=== PATIENT | female | born 1960 | race Caucasian/White ===

== ENCOUNTER 2021-02-11 12:10 | Inpatient (IN) ==
--- NOTE | 2021-02-11 13:09 | Emergency Department Note ---
Weakness HPI <Milly Garcia PA-C - Last Filed: 02/11/21 21:12> General Chief complaint: Weakness Stated complaint: weakness Time Seen by Provider: 02/11/21 12:30 Source: EMS Mode of arrival: EMS Limitations: language barrier History of Present Illness HPI Narrative: This is a 60-year-old female patient with ESRD with a tunneled right dialysis catheter placed last week who lives at [facility], [place] and presented for the second time in the last week for altered mental status. She was transferred from here to [facility] for dialysis and a neurology consult when a CT of her head showed enlarged ventricles with concern for normal pressure hydrocephaly. She was worked up by neurosurgery, Dr. Crandall and he felt that there was evidence of enlarged ventricles with some neurological features of normal pressure hydrocephaly, but felt more testing was indicated with a radionucleotide cisternogram as an outpatient evaluation, and he did not recommend shunting at that time. She was discharged last Thursday, and after I spoke with her son Riley today, he states that she was mentating normally and that her sodium had corrected at that time. According to nursing at her SNF today she is acutely more confused this morning and was somewhat combative. She refused dialysis. For that reason they sent her over here for evaluation. In addition, she has multiple bruises along the right side of her body. In discussion with her son, he states that she has been falling frequently. She does take clopidogrel. Son is her DPOA and would like her admitted to normalize her mentation so that they can have a conversation about goals of care and possible hospice as the patient has vocalized many times she does not want to do dialysis. At this time I do not think she has executive function to make that decision for herself. Related Data Home Medications Medication Instructions Recorded Confirmed divalproex 250 mg tablet,delayed 1,000 mg PO HS tab 04/18/15 02/12/21 release B complex-vitamin C-folic acid 1 tab PO QDAY 02/11/21 02/11/21 [Nephro-Saritha] acetaminophen 650 mg PO Q6HP PRN 02/11/21 02/12/21 amantadine HCl 100 mg PO BID 02/11/21 02/11/21 amlodipine 10 mg PO QDAY 02/11/21 02/11/21 aspirin 81 mg PO QDAY 02/11/21 02/11/21 atorvastatin 40 mg PO QHS 02/11/21 02/12/21 bisacodyl [Dulcolax (bisacodyl)] 10 mg UT ONCE PRN 02/11/21 02/11/21 bupropion HCl 150 mg PO BID 02/11/21 02/12/21 carvedilol 6.25 mg PO BID 02/11/21 02/12/21 clopidogrel 75 mg PO QDAY 02/11/21 02/11/21 docusate sodium 250 mg PO BID 02/11/21 02/11/21 hydralazine 25 mg PO BID 02/11/21 02/11/21 lactulose 30 ml PO BID PRN 02/11/21 02/12/21 megestrol 400 mg PO BID 02/11/21 02/11/21 olanzapine 10 mg PO QHS 02/11/21 02/12/21 oxybutynin chloride [Ditropan XL] 5 mg PO QDAY 02/11/21 02/11/21 polyethylene glycol 3350 17 g PO QDAY 02/11/21 02/11/21 sevelamer HCl 800 mg PO TID 02/11/21 02/11/21 sodium phosphates [Fleet Enema] 118 ml UT ONCE PRN 02/11/21 02/12/21 trazodone 50 mg PO QHS 02/11/21 02/11/21 valproic acid 250 mg PO BID 02/11/21 02/12/21 lidocaine-prilocaine 2.5 g TOPICAL Q48H 02/12/21 02/12/21 Allergies Allergy/AdvReac Type Severity Reaction Status Date / Time fluoxetine Allergy Unknown Verified 02/05/21 09:11 Fate Allergy Verified 02/05/21 09:11 meperidine Allergy Verified 02/05/21 09:11 codeine AdvReac Mild Agitated Verified 04/14/15 20:10 Review of Systems <Milly Garcia PA-C - Last Filed: 02/11/21 21:12> ROS ROS Narrative: Narrative: All systems ED: reviewed and negative except as stated. <Yan Arreguin MD - Last Filed: 02/13/21 08:49> ROS ROS Narrative: ROS is suspect as patient exhibiting some confusion. PFSH <Milly Garcia PA-C - Last Filed: 02/11/21 21:12> Narrative Patient History Narrative: Narrative: Medical/Surgical/Family History All Active Problems (Updated 02/13/21 @ 08:07 by Gurwinder Mccann MD) Acute hypernatremia (Acute) Acute hyperkalemia (Acute) Encephalopathy (Acute) End stage renal failure on dialysis (Acute) Hypernatremia (Acute) Altered mental status (Acute) Vitamin D deficiency (Acute) Hyperlipemia (Acute) Bipolar affect, depressed (Acute) Kidney disease, chronic, stage IV (severe, EGFR 15-29 ml/min) (Acute) Cough (Chronic) Musculoskeletal pain (Chronic) Dementia (Chronic) Urinary retention (Chronic) Abscess (Acute) MRSA (methicillin resistant Staphylococcus aureus) infection (Acute) Medical History Abscess Bipolar affect, depressed Cough Dementia Hyperlipemia Kidney disease, chronic, stage IV (severe, EGFR 15-29 ml/min) MRSA (methicillin resistant Staphylococcus aureus) infection Musculoskeletal pain Urinary retention Vitamin D deficiency Social History Smoking Status: Never smoker Alcohol Intake Frequency: does not drink Substance Use: does not use Exam <Milly Garcia PA-C - Last Filed: 02/11/21 21:12> Narrative Narrative: General: AOx3, NAD, confused, tremulous, ataxic. Not oriented to place. HEENT: PERRLA, EOMI, normocephalic. Dry mucous membranes. Normal facies and edentulous. Chest: Symmetric Respiratory: Lungs clear to auscultation bilaterally. No respiratory distress. Unlabored breathing. Heart: Regular rate and rhythm, no murmurs/clicks/rubs. Abdomen: Non-tender, Non distended, normal bowel tones. No organomegaly. Extremities: Warm and well perfused. No edema. DP 2+ bilaterally. No venous stasis. Neuro: Ataxia. Cranial nerves II-XII normal. Skin: Warm dry, no rashes or lesions, no cyanosis. Psych: Normal mood and affect Heme/Lymph: He has bruises along her right chest wall and all down her right leg. Nontender to palpation. General Limitations: language barrier <Yan Arreguin MD - Last Filed: 02/13/21 08:49> Narrative Narrative: Correction: Pt. was NOT AOx3, but did respond to her name and seemed aware she was in a medical setting. Course <Milly Garcia PA-C - Last Filed: 02/11/21 21:12> Course Course Narrative: 61-year-old female with dialysis dependent ESRD is seen for altered mental status Reevaluation(s) Reevaluation #1: Check basic labs, UA, obtain blood cultures in the setting of recent dialysis port placement, chest x-ray, repeat head CT to rule out worsening hydrocephaly. Obtain records from [facility]. Blood cultures x2 pending in the setting of recent tunnel catheter placement. Reevaluation #2: Patient's sodium is 153. Valproic acid is 35, and her ammonia is not elevated. Chest x-ray is normal, head CT is unchanged from 02/05. Case is discussed with the neurosurgeon her saw her at [facility] last week, Dr. Yee, and he feels that she should be dialyzed first and correct any metabolic disturbances to see if her mentation improves. Patient needs shaneka lysis, but normal pressure hydrocephalus cannot be completely excluded at this time. For this reason she will need transfer to higher level of care where neurosurgery services are available. There are no beds regionally and we are waiting a callback from [facility]. Vital Signs Vital signs: Vital Signs Pulse Rate 82 02/11/21 12:11 Respiratory Rate 18 02/11/21 12:11 Blood Pressure 108/94 02/11/21 12:11 Pulse Oximetry (%) 100 02/11/21 12:11 Temperature 98.6 F 02/13/21 08:01 Pulse Rate 59 L 02/13/21 04:01 Respiratory Rate 17 02/13/21 08:04 Blood Pressure 99/76 02/13/21 08:01 Pulse Oximetry (%) 96 02/13/21 08:01 <Yan Arreguin MD - Last Filed: 02/13/21 08:49> Vital Signs Vital signs: Vital Signs Pulse Rate 82 02/11/21 12:11 Respiratory Rate 18 02/11/21 12:11 Blood Pressure 108/94 02/11/21 12:11 Pulse Oximetry (%) 100 02/11/21 12:11 Temperature 98.6 F 02/13/21 08:01 Pulse Rate 59 L 02/13/21 04:01 Respiratory Rate 17 02/13/21 08:04 Blood Pressure 99/76 02/13/21 08:01 Pulse Oximetry (%) 96 02/13/21 08:01 [facility] <Milly Garcia PA-C - Last Filed: 02/11/21 21:12> MDM Narrative Medical decision making narrative: Acute encephalopathy Dialysis dependent ESRD Possible normal pressure hydrocephalus Hypernatremia Currently awaiting a bed for transfer. Cultures x2 are pending this patient has been signed out to Dr. Landis at change of shift. Please see his notes for further details. Lab Data Result diagrams: 02/12/21 07:00 02/13/21 04:05 Labs: Lab Results 02/11/21 02/11/21 02/11/21 Range/Units 12:54 13:51 13:51 WBC 7.4 (4.5-11.0) K/mcL RBC 3.49 L (4.00-5.20) M/mcL Hgb 11.9 L (12.0-15.0) g/dL Hct 36.3 (36.0-48.0) % MCV 104.0 H (80.0-100.0) fL MCH 34.1 H (26.0-34.0) pg MCHC 32.8 (31.0-36.0) g/dL RDW 14.4 (11.5-14.5) % Plt Count 195 (140-440) K/mcL MPV 12.4 H (7.4-10.4) fL Seg Neutrophils % 74 (38-78) % Lymphocytes % 23 (15-49) % Monocytes % (Manual) 3 (1-12) % Platelet Estimate Normal (Normal) RBC Morphology Abnormal A (Normal) Macrocytosis 1+ A (None Seen) VBG Lactic Acid (0.5-2.0) mmol/L Sodium 153 H (133-145) mmol/L Potassium 4.6 (3.3-5.1) mmol/L Chloride 116 H (96-108) mmol/L Carbon Dioxide 23 (22-30) mmol/L Anion Gap 14.0 (8.0-16.0) BUN 69 H (8-23) mg/dL Creatinine 6.4 H* (0.6-1.1) mg/dL GFR Calculation 6 Glucose 73 (70-105) mg/dL Calcium 10.4 (8.6-10.4) mg/dL Total Bilirubin 0.5 (0.1-1.0) mg/dL AST 33 H (<32) U/L ALT 40 H (<40) U/L Alkaline Phosphatase 113 (39-117) U/L Ammonia 32 (11-51) umol/L Total Protein 5.8 L (5.9-8.4) gm/dL Albumin 3.6 (3.2-5.2) gm/dL Globulin 2.2 (2.2-3.7) gm/dL Albumin/Globulin Ratio 1.6 (1.0-2.3) Valproic Acid ug/mL 02/11/21 02/11/21 Range/Units 14:03 18:30 WBC (4.5-11.0) K/mcL RBC (4.00-5.20) M/mcL Hgb (12.0-15.0) g/dL Hct (36.0-48.0) % MCV (80.0-100.0) fL MCH (26.0-34.0) pg MCHC (31.0-36.0) g/dL RDW (11.5-14.5) % Plt Count (140-440) K/mcL MPV (7.4-10.4) fL Seg Neutrophils % (38-78) % Lymphocytes % (15-49) % Monocytes % (Manual) (1-12) % Platelet Estimate (Normal) RBC Morphology (Normal) Macrocytosis (None Seen) VBG Lactic Acid 1.4 (0.5-2.0) mmol/L Sodium (133-145) mmol/L Potassium (3.3-5.1) mmol/L Chloride (96-108) mmol/L Carbon Dioxide (22-30) mmol/L Anion Gap (8.0-16.0) BUN (8-23) mg/dL Creatinine (0.6-1.1) mg/dL GFR Calculation Glucose (70-105) mg/dL Calcium (8.6-10.4) mg/dL Total Bilirubin (0.1-1.0) mg/dL AST (<32) U/L ALT (<40) U/L Alkaline Phosphatase (39-117) U/L Ammonia (11-51) umol/L Total Protein (5.9-8.4) gm/dL Albumin (3.2-5.2) gm/dL Globulin (2.2-3.7) gm/dL Albumin/Globulin Ratio (1.0-2.3) Valproic Acid 35.0 ug/mL ED POC Tests ED POC Tests: TRA - SARS Antigen Negative <Yan Arreguin MD - Last Filed: 02/13/21 08:49> Lab Data Labs: Lab Results 02/11/21 02/11/21 02/11/21 Range/Units 12:54 13:51 13:51 WBC 7.4 (4.5-11.0) K/mcL RBC 3.49 L (4.00-5.20) M/mcL Hgb 11.9 L (12.0-15.0) g/dL Hct 36.3 (36.0-48.0) % MCV 104.0 H (80.0-100.0) fL MCH 34.1 H (26.0-34.0) pg MCHC 32.8 (31.0-36.0) g/dL RDW 14.4 (11.5-14.5) % Plt Count 195 (140-440) K/mcL MPV 12.4 H (7.4-10.4) fL Seg Neutrophils % 74 (38-78) % Lymphocytes % 23 (15-49) % Monocytes % (Manual) 3 (1-12) % Platelet Estimate Normal (Normal) RBC Morphology Abnormal A (Normal) Macrocytosis 1+ A (None Seen) VBG Lactic Acid (0.5-2.0) mmol/L Sodium 153 H (133-145) mmol/L Potassium 4.6 (3.3-5.1) mmol/L Chloride 116 H (96-108) mmol/L Carbon Dioxide 23 (22-30) mmol/L Anion Gap 14.0 (8.0-16.0) BUN 69 H (8-23) mg/dL Creatinine 6.4 H* (0.6-1.1) mg/dL GFR Calculation 6 Glucose 73 (70-105) mg/dL Calcium 10.4 (8.6-10.4) mg/dL Total Bilirubin 0.5 (0.1-1.0) mg/dL AST 33 H (<32) U/L ALT 40 H (<40) U/L Alkaline Phosphatase 113 (39-117) U/L Ammonia 32 (11-51) umol/L Total Protein 5.8 L (5.9-8.4) gm/dL Albumin 3.6 (3.2-5.2) gm/dL Globulin 2.2 (2.2-3.7) gm/dL Albumin/Globulin Ratio 1.6 (1.0-2.3) Valproic Acid ug/mL 02/11/21 02/11/21 Range/Units 14:03 18:30 WBC (4.5-11.0) K/mcL RBC (4.00-5.20) M/mcL Hgb (12.0-15.0) g/dL Hct (36.0-48.0) % MCV (80.0-100.0) fL MCH (26.0-34.0) pg MCHC (31.0-36.0) g/dL RDW (11.5-14.5) % Plt Count (140-440) K/mcL MPV (7.4-10.4) fL Seg Neutrophils % (38-78) % Lymphocytes % (15-49) % Monocytes % (Manual) (1-12) % Platelet Estimate (Normal) RBC Morphology (Normal) Macrocytosis (None Seen) VBG Lactic Acid 1.4 (0.5-2.0) mmol/L Sodium (133-145) mmol/L Potassium (3.3-5.1) mmol/L Chloride (96-108) mmol/L Carbon Dioxide (22-30) mmol/L Anion Gap (8.0-16.0) BUN (8-23) mg/dL Creatinine (0.6-1.1) mg/dL GFR Calculation Glucose (70-105) mg/dL Calcium (8.6-10.4) mg/dL Total Bilirubin (0.1-1.0) mg/dL AST (<32) U/L ALT (<40) U/L Alkaline Phosphatase (39-117) U/L Ammonia (11-51) umol/L Total Protein (5.9-8.4) gm/dL Albumin (3.2-5.2) gm/dL Globulin (2.2-3.7) gm/dL Albumin/Globulin Ratio (1.0-2.3) Valproic Acid 35.0 ug/mL ED POC Tests ED POC Tests: TRA - SARS Antigen Negative <Yan Arreguin MD - Last Filed: 02/13/21 08:49> Critical Care Time Critical Care Time: Yes Total Critical Care Time: 30 Attestation: In this patient with hypernatremia and altered mental status. Time is exclusive of separate billable procedure. Discharge Plan Patient/Caregiver Discharge Instructions Pt seen by OVERLOCK OPERATOR/PA only: Yes Clinical Impression: End stage renal failure on dialysis, Hypernatremia, Altered mental status Patient Disposition: Xfer As Inpt ([facility]) Discharge Date/Time: 02/12/21 00:38
[2021-02-11 14:24] LABS: ALT/SGPT 40 U/L (<40); AST/SGOT 33 U/L (<32); Albumin 3.6 gm/dL (3.2-5.2); Albumin/Globulin Ratio 1.6 (1.0-2.3); Alkaline Phosphatase 113 U/L (39-117); Bilirubin,Total 0.5 mg/dL (0.1-1.0); Blood Urea Nitrogen 69 mg/dL (8-23); Calcium 10.4 mg/dL (8.6-10.4); Carbon Dioxide 23 mmol/L (22-30); Chloride 116 mmol/L (96-108); Globulin 2.2 gm/dL (2.2-3.7); Glomerular Filtration Rate 6; Glucose 73 mg/dL (70-105)
[2021-02-11 14:26] LABS: Hematocrit 36.3 % (36.0-48.0); Hemoglobin 11.9 g/dL (12.0-15.0); Mean Corpuscular HGB Conc 32.8 g/dL (31.0-36.0); Mean Platelet Volume 12.4 fL (7.4-10.4); Platelet Count 195 K/mcL (140-440); RBC 3.49 M/mcL (4.00-5.20); Red Cell Distribution Width 14.4 % (11.5-14.5); WBC 7.4 K/mcL (4.5-11.0)
--- NOTE | 2021-02-11 14:34 | XRay Report ---
CLINICAL INFORMATION: AMS, r/o infection COMPARISON: 02/05/2021 FINDINGS: Right double-lumen catheter tip overlies the SVC right atrial junction in stable satisfactory position. Heart size, mediastinum and pulmonary vessels are normal. The lungs are clear. No effusions. IMPRESSION: Normal Interpreted and Authenticated by: Warren Lao 02/11/21
[2021-02-11 14:59] LABS: Lymphocytes % 23 % (15-49); Macrocytosis 1+ (None Seen); Monocytes % (Manual) 3 % (1-12); Platelet Estimate NORMAL (Normal); RBC Morphology ABNORMAL (Normal); Segmented Neutrophils % 74 % (38-78)
--- NOTE | 2021-02-11 16:02 | Cat Scan Report ---
CLINICAL INFORMATION: Acute mental status change COMPARISON: 02/05/2021 TECHNIQUE: 2.5 mm helical slices were obtained in the skull base to vertex. Following reconstruction, axial reformatted images were reviewed at bone and parenchymal windows. The exam was performed using radiation dose optimization techniques including, but not limited to, automated exposure control, adjustment of the mA and/or kV according to patient size and use of iterative reconstruction technique. FINDINGS: The ventricles, sulci, fissures, and cisterns are moderately dilated compatible with moderate atrophy. The degree of atrophy is more prominent in the frontal temporal regions. No change from prior exam. No extra-axial fluid collections are identified. There is no evidence of hemorrhage, mass effect, or edema. Bone windows show no osseous abnormality. IMPRESSION: Moderate atrophy-much more than expected for age. Asymmetric atrophy in the frontal temporal regions suggest the possibility of frontotemporal atrophy. No acute findings. No change Interpreted and Authenticated by: Warren Lao 02/11/21
--- NOTE | 2021-02-11 22:36 | Emergency Department Note ---
Weakness HPI General Chief complaint: Weakness Stated complaint: weakness Time Seen by Provider: 02/11/21 12:30 Source: EMS Mode of arrival: EMS Limitations: language barrier History of Present Illness HPI Narrative: Please see KODY Molina H&P from earlier today. Care assumed pending disposition. 61-year-old female end-stage renal disease on dialysis schizoaffective disorder hypernatremia presents with increased confusion on dialysis day which was not done. Patient had similar presentation last week was admitted to [facility] with hypernatremia and concerns of hydrocephalus seen on CT scan. Patient was seen by neurosurgeon at [facility] and felt to have altered mental status likely from other causes including the renal failure and hypernatremia and recommended outpatient evaluation of the hydrocephalus. Patient had improvement in her hypernatremia was sent to her nursing facility and then today returns here under similar presentation with confusion. Patient was found to be hypernatremic still at 153. CT scan shows no change. KODY Molina attempted to find placement for the patient but [facility] as well as [facility] and [facility] all have no beds available. Related Data Home Medications Medication Instructions Recorded Confirmed divalproex 250 mg tablet,delayed 1,000 mg PO HS tab 04/18/15 02/11/21 release B complex-vitamin C-folic acid 1 tab PO QDAY 02/11/21 02/11/21 [Nephro-Saritha] acetaminophen 650 mg PO Q6HP PRN 02/11/21 02/11/21 amantadine HCl 100 mg PO BID 02/11/21 02/11/21 amlodipine 10 mg PO QDAY 02/11/21 02/11/21 aspirin 81 mg PO QDAY 02/11/21 02/11/21 atorvastatin 40 mg PO QDAY 02/11/21 02/11/21 bisacodyl [Dulcolax (bisacodyl)] 10 mg TN ONCE PRN 02/11/21 02/11/21 bupropion HCl 150 mg PO BID 02/11/21 02/11/21 carvedilol 6.25 mg PO BID 02/11/21 02/11/21 clopidogrel 75 mg PO QDAY 02/11/21 02/11/21 docusate sodium 250 mg PO BID 02/11/21 02/11/21 hydralazine 25 mg PO BID 02/11/21 02/11/21 lactulose 30 g PO BID PRN 02/11/21 02/11/21 megestrol 400 mg PO BID 02/11/21 02/11/21 olanzapine 10 mg PO QDAY 02/11/21 02/11/21 oxybutynin chloride [Ditropan XL] 5 mg PO QDAY 02/11/21 02/11/21 polyethylene glycol 3350 17 g PO QDAY 02/11/21 02/11/21 sevelamer HCl 800 mg PO TID 02/11/21 02/11/21 sodium phosphates [Fleet Enema] 118 ml TN ONCE PRN 02/11/21 02/11/21 trazodone 50 mg PO QHS 02/11/21 02/11/21 valproic acid 250 mg PO QDAY 02/11/21 02/11/21 Allergies Allergy/AdvReac Type Severity Reaction Status Date / Time fluoxetine Allergy Unknown Verified 02/05/21 09:11 [place] Allergy Verified 02/05/21 09:11 meperidine Allergy Verified 02/05/21 09:11 codeine AdvReac Mild Agitated Verified 04/14/15 20:10 Review of Systems ROS ROS Narrative: See earlier review of systems PFSH Narrative Patient History Narrative: Narrative: Medical/Surgical/Family History All Active Problems (Updated 02/11/21 @ 23:32 by Bradley Landis MD) Acute hypernatremia (Acute) Acute hyperkalemia (Acute) Encephalopathy (Acute) End stage renal failure on dialysis (Acute) Hypernatremia (Acute) Altered mental status (Acute) Vitamin D deficiency (Acute) Hyperlipemia (Acute) Bipolar affect, depressed (Acute) Kidney disease, chronic, stage IV (severe, EGFR 15-29 ml/min) (Acute) Cough (Chronic) Musculoskeletal pain (Chronic) Dementia (Chronic) Urinary retention (Chronic) Abscess (Acute) MRSA (methicillin resistant Staphylococcus aureus) infection (Acute) Medical History Abscess Bipolar affect, depressed Cough Dementia Hyperlipemia Kidney disease, chronic, stage IV (severe, EGFR 15-29 ml/min) MRSA (methicillin resistant Staphylococcus aureus) infection Musculoskeletal pain Urinary retention Vitamin D deficiency Social History Smoking Status: Never smoker Alcohol Intake Frequency: does not drink Substance Use: does not use Exam Narrative Narrative: Constitutional: Awake alert no acute distress well-nourished well- developed HEENT: Normocephalic, atraumatic PERRLA, EOMI, oral mucosa moist, pharynx clear, Neck: Supple, no lymphadenopathy, no JVD Lungs: Breathing unlabored, lungs clear Cardiac: Regular rate and rhythm, normal distal pulses, GI: Soft nontender nondistended no guarding no rebound Musculoskeletal: No tenderness, no deformities, no edema, full range of motion Neuro: Awake alert, confused, moves all extremities, resting tremor Psychiatric: Normal mood and affect Skin: Warm dry no rash, cap refill less than 2 seconds General Limitations: language barrier Course Consultations Consultation #1: Case discussed with neurosurgeon Dr Gonzales at [facility] in [place] who reviewed CT scan of head and did not feel that the patient definitively even has hydrocephalus and that actually that prominent ventricles may be from atrophy and did not require any immediate intervention or evaluation. He did recommend outpatient follow-up. Time: 22:34 Consultation #2: Case discussed with hospitalist Dr. Deras who agrees to admit patient here as long as heddler agrees to treat the hypernatremia and the renal failure with dialysis. And as long as the patient's family realizes there is no neurologist or neurosurgeon here and that can be followed up as an outpatient. Time: 23:10 Consultation #3: Case discussed with the patient's heddler Dr. Mccann who is agreeable to seeing the patient in consultation and evaluating and treating the hypernatremia and doing dialysis here. Time: 23:23 Vital Signs Vital signs: Vital Signs Pulse Rate 82 02/11/21 12:11 Respiratory Rate 18 02/11/21 12:11 Blood Pressure 108/94 02/11/21 12:11 Pulse Oximetry (%) 100 02/11/21 12:11 Temperature 97.2 F 02/11/21 23:35 Pulse Rate 84 02/11/21 23:45 Respiratory Rate 15 02/11/21 23:45 Blood Pressure 108/93 02/11/21 23:45 Pulse Oximetry (%) 98 02/11/21 23:45 [facility] Narrative Medical decision making narrative: Narrative: Lab Data Lab results reviewed: Yes I reviewed the patient's lab results. Result diagrams: 02/11/21 13:51 02/11/21 12:54 Labs: Lab Results 02/11/21 02/11/21 02/11/21 Range/Units 12:54 13:51 13:51 WBC 7.4 (4.5-11.0) K/mcL RBC 3.49 L (4.00-5.20) M/mcL Hgb 11.9 L (12.0-15.0) g/dL Hct 36.3 (36.0-48.0) % MCV 104.0 H (80.0-100.0) fL MCH 34.1 H (26.0-34.0) pg MCHC 32.8 (31.0-36.0) g/dL RDW 14.4 (11.5-14.5) % Plt Count 195 (140-440) K/mcL MPV 12.4 H (7.4-10.4) fL Seg Neutrophils % 74 (38-78) % Lymphocytes % 23 (15-49) % Monocytes % (Manual) 3 (1-12) % Platelet Estimate Normal (Normal) RBC Morphology Abnormal A (Normal) Macrocytosis 1+ A (None Seen) VBG Lactic Acid (0.5-2.0) mmol/L Sodium 153 H (133-145) mmol/L Potassium 4.6 (3.3-5.1) mmol/L Chloride 116 H (96-108) mmol/L Carbon Dioxide 23 (22-30) mmol/L Anion Gap 14.0 (8.0-16.0) BUN 69 H (8-23) mg/dL Creatinine 6.4 H* (0.6-1.1) mg/dL GFR Calculation 6 Glucose 73 (70-105) mg/dL Calcium 10.4 (8.6-10.4) mg/dL Total Bilirubin 0.5 (0.1-1.0) mg/dL AST 33 H (<32) U/L ALT 40 H (<40) U/L Alkaline Phosphatase 113 (39-117) U/L Ammonia 32 (11-51) umol/L Total Protein 5.8 L (5.9-8.4) gm/dL Albumin 3.6 (3.2-5.2) gm/dL Globulin 2.2 (2.2-3.7) gm/dL Albumin/Globulin Ratio 1.6 (1.0-2.3) Valproic Acid ug/mL 02/11/21 02/11/21 Range/Units 14:03 18:30 WBC (4.5-11.0) K/mcL RBC (4.00-5.20) M/mcL Hgb (12.0-15.0) g/dL Hct (36.0-48.0) % MCV (80.0-100.0) fL MCH (26.0-34.0) pg MCHC (31.0-36.0) g/dL RDW (11.5-14.5) % Plt Count (140-440) K/mcL MPV (7.4-10.4) fL Seg Neutrophils % (38-78) % Lymphocytes % (15-49) % Monocytes % (Manual) (1-12) % Platelet Estimate (Normal) RBC Morphology (Normal) Macrocytosis (None Seen) VBG Lactic Acid 1.4 (0.5-2.0) mmol/L Sodium (133-145) mmol/L Potassium (3.3-5.1) mmol/L Chloride (96-108) mmol/L Carbon Dioxide (22-30) mmol/L Anion Gap (8.0-16.0) BUN (8-23) mg/dL Creatinine (0.6-1.1) mg/dL GFR Calculation Glucose (70-105) mg/dL Calcium (8.6-10.4) mg/dL Total Bilirubin (0.1-1.0) mg/dL AST (<32) U/L ALT (<40) U/L Alkaline Phosphatase (39-117) U/L Ammonia (11-51) umol/L Total Protein (5.9-8.4) gm/dL Albumin (3.2-5.2) gm/dL Globulin (2.2-3.7) gm/dL Albumin/Globulin Ratio (1.0-2.3) Valproic Acid 35.0 ug/mL ED POC Tests ED POC Tests: TRA - SARS Antigen Negative Radiology Data Radiology results reviewed: Yes I reviewed the patient's radiology results. Discharge Plan Patient/Caregiver Discharge Instructions Pt seen by BULB GROWER/PA only: Yes Clinical Impression: End stage renal failure on dialysis, Hypernatremia, Altered mental status Patient Disposition: Xfer As Inpt ([facility] Follow up with: Cory Padilla MD [Primary Care Provider] - Prescriptions: No Action bupropion HCl 150 mg tablet sustained-release 12 hr 150 mg PO BID RF: 0 acetaminophen 325 mg tablet 650 mg PO Q6HP PRN (Reason: Pain) RF: 0 carvedilol 6.25 mg tablet 6.25 mg PO BID RF: 0 trazodone 50 mg Tablet 50 mg PO QHS RF: 0 polyethylene glycol 3350 17 gram Powder In Packet 17 g PO QDAY RF: 0 atorvastatin 10 mg tablet 40 mg PO QDAY RF: 0 sevelamer HCl 800 mg Tablet 800 mg PO TID RF: 0 olanzapine 10 mg Tablet 10 mg PO QDAY RF: 0 hydralazine 25 mg Tablet 25 mg PO BID RF: 0 clopidogrel 75 mg tablet 75 mg PO QDAY RF: 0 valproic acid 250 mg capsule 250 mg PO QDAY RF: 0 amantadine HCl 100 mg capsule 100 mg PO BID RF: 0 amlodipine 10 mg tablet 10 mg PO QDAY RF: 0 bisacodyl [Dulcolax (bisacodyl)] 10 mg Suppository 10 mg TN ONCE PRN (Reason: Constipation) RF: 0 Fleet Enema 19-7 gram/118 mL Enema 118 ml TN ONCE PRN (Reason: Constipation) RF: 0 oxybutynin chloride [Ditropan XL] 5 mg Tablet Extended Release 24hr 5 mg PO QDAY RF: 0 Nephro-Saritha 0.8 mg Tablet 1 tab PO QDAY RF: 0 aspirin 81 mg Tablet 81 mg PO QDAY RF: 0 docusate sodium 250 mg Capsule 250 mg PO BID RF: 0 lactulose 20 gram/30 mL Solution 30 g PO BID PRN (Reason: Constipation) RF: 0 megestrol 400 mg/10 mL (10 mL) Suspension 400 mg PO BID RF: 0 divalproex 250 mg tablet,delayed release (DR/EC) 1,000 mg PO HS RF: 0
[2021-02-12] MEDS: DEXTROSE 5% IN WATER 1,000 ML IV SCH ×2 (04:29→16:36)
[2021-02-12] MEDS ORDERED: LACTULOSE 20 GM/30 ML ORAL.SOL PO PRN (06:42)
[2021-02-12] MEDS ORDERED: BISACODYL 10 MG SUPP.RECT PR PRN (06:42)
[2021-02-12] MEDS ORDERED: FLEETS ADULT ENEMA PR PRN (06:42)
--- NOTE | 2021-02-12 06:42 | Internal Med History&Physical ---
HPI History of Present Illness Patient information: Note initiated : 02/12/21 at 6:35 am Service Date, if different from initiated Date: [] Patient: Eve Jones a 61 y/o F admitted on 02/12/21 for weakness. Chief Complaint: [] History of present illness: Ms. Jones is a 61 year old F From shelter facility presents for the second time for altered mental status. She was transferred to [facility] and seen by Dr. Lea who felt she likely had a component with normal pressure hydrocephalus and wanted to continue the work-up outpatient. She is also dialysis patient missed dialysis on Thursday because she refused at the nursing facility and per nursing facility she was confused and thus sent back to the hospital. At multiple attempts were made to transfer the patient to her neurology or specifically neurosurgeon was available given the cerebral abnormalities. No beds were available elsewhere and thus requested admission here. Acceptance was predicated on understanding that would likely will not build to resolve her altered mental status given what appears to be underlying normal pressure hydrocephalus as well as known dementia. But she does found to be hyperatremic and the need of dialysis. Dr. Mccann was contacted and she was put on D5 water and will likely get dialysis this morning. Per the notes the son was hoping that her mentation would improve enough that he can have a conversation with her about goals of care as she stated him multiple times as she did not want to undergo dialysis. Patient has no current complaint she says she is feeling okay. Review of Systems: Pertinent positives as above. Denies headache/fever/chills/nausea/vomiting/chest or abdominal pain/cough/dyspnea/diarrhea. Remaining 10 point review of system reviewed negative PFSH PFSH All Active Problems (Updated 02/11/21 @ 23:32 by Bradley Landis MD) Acute hypernatremia (Acute) Acute hyperkalemia (Acute) Encephalopathy (Acute) End stage renal failure on dialysis (Acute) Hypernatremia (Acute) Altered mental status (Acute) Vitamin D deficiency (Acute) Hyperlipemia (Acute) Bipolar affect, depressed (Acute) Kidney disease, chronic, stage IV (severe, EGFR 15-29 ml/min) (Acute) Cough (Chronic) Musculoskeletal pain (Chronic) Dementia (Chronic) Urinary retention (Chronic) Abscess (Acute) MRSA (methicillin resistant Staphylococcus aureus) infection (Acute) Medical History Abscess Bipolar affect, depressed Cough Dementia Hyperlipemia Kidney disease, chronic, stage IV (severe, EGFR 15-29 ml/min) MRSA (methicillin resistant Staphylococcus aureus) infection Musculoskeletal pain Urinary retention Vitamin D deficiency Social History alcohol intake frequency: does not drink substance use type: does not use MEDS/ALLERGIES Home Medications and Allergies Home Medications Medication Instructions Recorded Confirmed Type divalproex 250 mg tablet,delayed 1,000 mg PO HS tab 04/18/15 02/12/21 History release B complex-vitamin C-folic acid 1 tab PO QDAY 02/11/21 02/11/21 History [Nephro-Saritha] acetaminophen 650 mg PO Q6HP PRN 02/11/21 02/12/21 History amantadine HCl 100 mg PO BID 02/11/21 02/11/21 History amlodipine 10 mg PO QDAY 02/11/21 02/11/21 History aspirin 81 mg PO QDAY 02/11/21 02/11/21 History atorvastatin 40 mg PO QHS 02/11/21 02/12/21 History bisacodyl [Dulcolax (bisacodyl)] 10 mg [place] ONCE PRN 02/11/21 02/11/21 History bupropion HCl 150 mg PO BID 02/11/21 02/12/21 History carvedilol 6.25 mg PO BID 02/11/21 02/12/21 History clopidogrel 75 mg PO QDAY 02/11/21 02/11/21 History docusate sodium 250 mg PO BID 02/11/21 02/11/21 History hydralazine 25 mg PO BID 02/11/21 02/11/21 History lactulose 30 ml PO BID PRN 02/11/21 02/12/21 History megestrol 400 mg PO BID 02/11/21 02/11/21 History olanzapine 10 mg PO QHS 02/11/21 02/12/21 History oxybutynin chloride [Ditropan XL] 5 mg PO QDAY 02/11/21 02/11/21 History polyethylene glycol 3350 17 g PO QDAY 02/11/21 02/11/21 History sevelamer HCl 800 mg PO TID 02/11/21 02/11/21 History sodium phosphates [Fleet Enema] 118 ml MI ONCE PRN 02/11/21 02/12/21 History trazodone 50 mg PO QHS 02/11/21 02/11/21 History valproic acid 250 mg PO BID 02/11/21 02/12/21 History lidocaine-prilocaine 2.5 g TOPICAL Q48H 02/12/21 02/12/21 History Allergies Allergy/AdvReac Type Severity Reaction Status Date / Time fluoxetine Allergy Unknown Verified 02/05/21 09:11 [place] Allergy Verified 02/05/21 09:11 meperidine Allergy Verified 02/05/21 09:11 codeine AdvReac Mild Agitated Verified 04/14/15 20:10 EXAM Constitutional Vitals: Temp Pulse Resp BP Pulse Ox 97.9 F 82 16 125/89 100 02/12/21 04:02 02/12/21 06:03 02/12/21 06:03 02/12/21 06:03 02/12/21 06:03 Exam: General: Alert, Awake, No acute Distress Eyes/N/T: EOMI, PERRL, Head/Neck: neck supple, normocephalic atraumatic CV: RRR, No murmurs, normal s1/s2 Pulm: Clear b/l, no wheezing/rhonchi/rales Abd: soft, nontender, +BS x4 Ext: no clubbing/cyanosis/edema Neuro: Alert, no focal deficits, moves all extremities, CN 2-12 grossly intact, symmetrical strength b/l upper/lower, sensations intact b/l upper/lower. A&Ox2(place, name) Skin: warm/dry DATA Data Completed and Pending Labs: Labs from last 24 hours 02/11/21 02/11/21 02/11/21 18:30 14:03 13:51 WBC 7.4 RBC 3.49 L Hgb 11.9 L Hct 36.3 MCV 104.0 H MCH 34.1 H MCHC 32.8 RDW 14.4 Plt Count 195 MPV 12.4 H Seg Neutrophils % 74 Lymphocytes % 23 Monocytes % (Manual) 3 Platelet Estimate Normal RBC Morphology Abnormal A Macrocytosis 1+ A VBG Lactic Acid 1.4 Sodium Potassium Chloride Carbon Dioxide Anion Gap BUN Creatinine GFR Calculation Glucose Calcium Total Bilirubin AST ALT Alkaline Phosphatase Ammonia Total Protein Albumin Globulin Albumin/Globulin Ratio Valproic Acid 35.0 02/11/21 02/11/21 13:51 12:54 WBC RBC Hgb Hct MCV MCH MCHC RDW Plt Count MPV Seg Neutrophils % Lymphocytes % Monocytes % (Manual) Platelet Estimate RBC Morphology Macrocytosis VBG Lactic Acid Sodium 153 H Potassium 4.6 Chloride 116 H Carbon Dioxide 23 Anion Gap 14.0 BUN 69 H Creatinine 6.4 H* GFR Calculation 6 Glucose 73 Calcium 10.4 Total Bilirubin 0.5 AST 33 H ALT 40 H Alkaline Phosphatase 113 Ammonia 32 Total Protein 5.8 L Albumin 3.6 Globulin 2.2 Albumin/Globulin Ratio 1.6 Valproic Acid A/P Narrative A/P Narrative: A: *Encephalopathy: Multifactorial 2/2 NPH + underlying dementia + metabolic disturbance *Hypernatremia: *ESRD: Follows with Dr. Mccann *Dementia: *Likely NPH: being Worked up outpatient *Bipolar d/o: *HTN: norvasc/hydralazine/coreg * P: -hypernatremia/electrolyte disturbance per nephrology -HD per nephrology -cont BP meds -cont psych meds - -f/u with [facility] for NPH evaluation -CM for placement -ppx: heparin Time Spent With Patient Time: Total time spent is greater than 50% in coordination of care (as documented) at patient's floor/unit and/or counseling patient: QUALITY Stroke Symptom Onset Unknown: No VTE Deep Vein Thrombosis/Pulmonary Embolism Present on Admission: No
[2021-02-12] MEDS ORDERED: POTASSIUM CHLORIDE 20 MEQ TABLET PO PRN (06:43)
[2021-02-12] MEDS ORDERED: ONDANSETRON 4 MG/2 ML VIAL IV PRN (06:43)
[2021-02-12] MEDS ORDERED: POTASSIUM CHLORIDE 40 MEQ in DEXTROSE 5% IN WATER 500 ML IV PRN (06:43)
[2021-02-12] MEDS ORDERED: IPRATROPIUM/ALBUTEROL 3 ML AMPUL.NEB NEB PRN (06:43)
[2021-02-12] MEDS ORDERED: MAGNESIUM SULFATE 2 GM/50 ML BAG IV PRN (06:43)
[2021-02-12] MEDS ORDERED: LIDOCAINE/PRILOCAINE 5 GM TUBE TOPICAL PRN (06:45)
[2021-02-12] MEDS ORDERED: ACETAMINOPHEN 325 MG TABLET PO PRN (06:55)
[2021-02-12 07:46] LABS: Basophils # (Auto) 0 K/mcL (0.00-0.20); Basophils % (Auto) 0 % (0.0-2.0); Eosinophils # (Auto) 0 K/mcL (0.00-0.70); Eosinophils % (Auto) 0 % (0.0-7.0); Hemoglobin 11.3 g/dL (12.0-15.0); Lymphocytes # (Auto) 1.16 K/mcL (1.50-4.80); Lymphocytes % (Auto) 18.9 % (15.0-49.0); Mean Cell Volume 106.5 fL (80.0-100.0); Mean Corpuscular HGB Conc 31.4 g/dL (31.0-36.0); Mean Platelet Volume 12.4 fL (7.4-10.4); Monocytes # (Auto) 0.48 K/mcL (0.10-0.90); Monocytes % (Auto) 7.8 % (1.0-12.0); Neutrophils % (Auto) 73.3 % (38.0-78.0); Platelet Count 162 K/mcL (140-440); RBC 3.38 M/mcL (4.00-5.20); Red Cell Distribution Width 14.6 % (11.5-14.5); WBC 6.1 K/mcL (4.5-11.0)
[2021-02-12] MEDS ORDERED: SEVELAMER 800 MG TABLET PO SCH (08:00)
[2021-02-12 08:32] LABS: ALT/SGPT 35 U/L (<40); AST/SGOT 29 U/L (<32); Albumin 3.5 gm/dL (3.2-5.2); Albumin/Globulin Ratio 1.8 (1.0-2.3); Alkaline Phosphatase 106 U/L (39-117); Bilirubin,Direct 0.2 mg/dL (<0.3); Bilirubin,Total 0.5 mg/dL (0.1-1.0); Blood Urea Nitrogen 83 mg/dL (8-23); Carbon Dioxide 18 mmol/L (22-30); Chloride 115 mmol/L (96-108); Glomerular Filtration Rate 5; Glucose 132 mg/dL (70-105); Lactate Dehydrogenase 356 U/L (135-225); Phosphorous 6.7 mg/dL (2.5-4.5); Triglycerides 103 mg/dL (<150); Uric Acid 10.2 mg/dL (2.5-8.0)
[2021-02-12] MEDS: OXYBUTYNIN CHLORIDE 5 MG TAB.XL.24H PO SCH (08:35)
[2021-02-12] MEDS: AMANTADINE HCL 100 MG CAPSULE PO SCH ×2 (08:35→20:38)
[2021-02-12] MEDS: buPROPion 150 MG TAB.SR.12H PO SCH ×2 (08:35→20:39)
[2021-02-12] MEDS: POLYETHYLENE GLYCOL 3350 17 GM PACKET PO SCH (08:35)
[2021-02-12] MEDS: HEPARIN 5,000 UNIT/ML VIAL SQ SCH ×2 (08:35→20:37)
[2021-02-12] MEDS: ASPIRIN 81 MG TAB.CHEW PO SCH (08:35)
[2021-02-12] MEDS: CARVEDILOL 6.25 MG TABLET PO SCH ×2 (08:35→17:38)
[2021-02-12] MEDS: MEGESTROL ACETATE 400 MG/10 ML ORAL.SUSP PO SCH ×2 (08:38→20:37)
[2021-02-12] MEDS ORDERED: amLODIPine 10 MG TABLET PO SCH (09:00)
[2021-02-12] MEDS ORDERED: hydrALAZINE 25 MG TABLET PO SCH (09:00)
[2021-02-12] MEDS ORDERED: CLOPIDOGREL 75 MG TABLET PO SCH (09:00)
--- NOTE | 2021-02-12 09:03 | Consultation ---
DATE OF CONSULTATION: 02/12/2021 REASON FOR CONSULTATION: Hyponatremia and end-stage renal disease. HISTORY OF PRESENT ILLNESS: The patient is a 61-year-old female with a history of end-stage renal disease on hemodialysis. Recently, she was hospitalized at [facility]. She had extensive workup. Over the last 6 months, she has deteriorated significantly. It was thought that she probably has normal pressure hydrocephalus and the workup has been underway. She had a similar reason for hospitalization at [facility] last week with hyponatremia. The patient was brought in to the hospital because of continued change in her mental status. They attempted to transfer her to another facility, but there were no beds available, for which reason she is hospitalized here. PAST MEDICAL HISTORY: End-stage renal disease on hemodialysis. History of hyponatremia. She has bipolar with chronic depression, dementia, urinary retention, and history of MRSA infections in the past. SOCIAL HISTORY: Does not drink alcohol, does not smoke. MEDICATIONS ON ADMISSION: 1. Divalproex 250 mg once daily. 2. Nephro-Saritha one tablet once daily. 3. Amantadine 100 mg twice daily. 4. Carvedilol 6.25 mg twice daily. 5. Megace 400 mg p.o. b.i.d. ALLERGIES: 1. FLUOXETINE. 2. LITHIUM. 3. MEPERIDINE. 4. CODEINE. PHYSICAL EXAMINATION: GENERAL: She is alert, oriented x3, no apparent distress. VITALS: Blood pressures have been 110-120 systolic and diastolic in the 80s. Pulse rates have been in the 80s. HEENT: NC/AT. Pupils are reactive. External ear and tympanic membranes appear normal. Oral cavity appears normal. Normal mucosa. NECK: Supple. No jugular venous distention. No lymphadenopathy, no thyromegaly. CHEST: Decreased air entry bilaterally. No rales or rhonchi heard. CARDIAC: S1, S2 heard. No S3, S4. ABDOMEN: Soft, nontender, no organomegaly. Positive bowel sounds. EXTREMITIES: Extremities did not show any evidence of edema. Palpable dorsalis pedis and posterior tibials. No skin rash or joint swellings noted. NEUROLOGIC: She has some shaking vibrations on the left, and she is more alert than usual. She is more alert today than she was last week. LABORATORY DATA: White count is 6.1 with hemoglobin of 11.3 and a platelet count of 162. Sodium 153, potassium 4.6, chloride of 116, CO2 of 23, BUN of 69, creatinine 6.4. ASSESSMENT AND PLAN: 1. Hyponatremia related to volume depletion. I do not think she is having any access to the water and she may not have been asking for it. I do not want to dialyze her today because of the fear of causing central pontine myelinolysis. The highest sodium that we can do on dialysis is 145. I will give her D5W for the day and bring the sodium into the 145 range and then stop the D5W. 2. End-stage renal disease. We will plan for dialysis tomorrow. 3. Multiple other problems, management per Hospitalist. MARI:jese Job ID: [id number] Doc ID: [id number] Gurwinder Mccann MD
[2021-02-12] MEDS: DOCUSATE SODIUM 100 MG CAPSULE PO SCH ×2 (09:57→20:38)
[2021-02-12 11:17] LABS: Blood Urea Nitrogen 86 mg/dL (8-23); Calcium 10.1 mg/dL (8.6-10.4); Carbon Dioxide 18 mmol/L (22-30); Chloride 115 mmol/L (96-108); Glomerular Filtration Rate 5; Glucose 126 mg/dL (70-105)
[2021-02-12] MEDS: VALPROIC ACIDS 250 MG/5 ML ORAL.SOL PO SCH ×2 (12:00→20:46)
[2021-02-12] MEDS: 0.9 % SODIUM CHLORIDE 10 ML SYRINGE IV SCH ×2 (14:07→20:45)
[2021-02-12 16:28] LABS: Blood Urea Nitrogen 88 mg/dL (8-23); Calcium 9.5 mg/dL (8.6-10.4); Carbon Dioxide 19 mmol/L (22-30); Chloride 110 mmol/L (96-108); Glomerular Filtration Rate 5; Glucose 119 mg/dL (70-105)
[2021-02-12] MEDS: OLANZapine 5 MG TABLET PO SCH (20:37)
[2021-02-12] MEDS: ATORVASTATIN 10 MG TABLET PO SCH (20:38)
[2021-02-12] MEDS: traZODone HCL 50 MG TABLET PO SCH (20:39)
[2021-02-12] MEDS: DIVALPROEX SODIUM 250 MG TABLET PO SCH (20:39)
[2021-02-12 23:21] LABS: Blood Urea Nitrogen 95 mg/dL (8-23); Calcium 9.8 mg/dL (8.6-10.4); Carbon Dioxide 20 mmol/L (22-30); Chloride 111 mmol/L (96-108); Glomerular Filtration Rate 6; Glucose 78 mg/dL (70-105)
[2021-02-13] MEDS: DEXTROSE 5% IN WATER 1,000 ML IV SCH (02:13)
[2021-02-13] MEDS: 0.9 % SODIUM CHLORIDE 10 ML SYRINGE IV SCH ×3 (05:21→21:17)
[2021-02-13 06:34] LABS: Appearance,Urine HAZY (Clear); Bacteria,Urine FEW /hpf (0); Bilirubin,Urine Negative (Negative); Color,Urine YELLOW; Culture Indicated,Urine No; Glucose,Urine (UA) Negative (Negative); Ketones,Urine Negative (Negative); Leukocyte Esterase,Urine 500 /ug (Negative); Nitrate,Urine Negative (Negative); Protein,Urine Negative (Negative); Specific Gravity,Urine 1.004 (1.000-1.035); Urine Blood 0.03 mg/dL (Negative); Urine RBC < 1 /hpf (0-3); Urine Squamous Epithelial Cell 5 /hpf (0-4); Urine Transitional Epi Cells < 1 /hpf (0-2); Urine WBC 43 /hpf (0-4); Urobilinogen,Urine Negative
[2021-02-13] MEDS: ASPIRIN 81 MG TAB.CHEW PO SCH (07:58)
[2021-02-13] MEDS: VALPROIC ACIDS 250 MG/5 ML ORAL.SOL PO SCH ×2 (07:58→22:36)
[2021-02-13] MEDS: MEGESTROL ACETATE 400 MG/10 ML ORAL.SUSP PO SCH ×2 (07:58→21:15)
[2021-02-13] MEDS: POLYETHYLENE GLYCOL 3350 17 GM PACKET PO SCH (07:58)
--- NOTE | 2021-02-13 07:58 | Internal Med Progress Note ---
SUBJECTIVE Subjective Patient information: Note initiated : 02/13/21 at 7:54 am Service Date, if different from initiated Date: [] Patient: vEe Jones a 61 y/o F admitted on 02/12/21 for weakness. Chief Complaint: [] Interval history: History of present illness: Ms. Jones is a 61 year old F From halfway facility presents for the second time for altered mental status. She was transferred to [facility] and seen by Dr. Lea who felt she likely had a component with normal pressure hydrocephalus and wanted to continue the work-up outpatient. She is also dialysis patient missed dialysis on Thursday because she refused at the nursing facility and per nursing facility she was confused and thus sent back to the hospital. At multiple attempts were made to transfer the patient to her neurology or specifically neurosurgeon was available given the cerebral abnormalities. No beds were available elsewhere and thus requested admission here. Acceptance was predicated on understanding that would likely will not build to resolve her altered mental status given what appears to be underlying normal pressure hydrocephalus as well as known dementia. But she does found to be hyperatremic and the need of dialysis. Dr. Mccann was contacted and she was put on D5 water and will likely get dialysis this morning. Per the notes the son was hoping that her mentation would improve enough that he can have a conversation with her about goals of care as she stated him multiple times as she did not want to undergo dialysis. Patient has no current complaint she says she is feeling okay. 02/13 Sodium returned within normal limits yesterday although elevated again today. Undergoing dialysis today. Mentation seems to be a little bit worse when I visited her during dialysis. Able to gather review of systems patient is not answering questions Constitutional Vitals: Vital Signs Temp Pulse Resp BP Pulse Ox 98.1 F 59 L 16 83/66 98 02/13/21 04:01 02/13/21 04:01 02/13/21 06:01 02/13/21 06:01 02/13/21 06:01 Period Temp Pulse Resp BP Sys/Anaya Pulse Ox Last 24 Hr 97.4 F-98.5 F 58-85 12-22 83-139/62-102 94-100 Intake and Output 02/12/21 02/13/21 02/13/21 21:59 05:59 13:59 Intake Total 1000 Output Total 4 2 Balance 996 -2 Weight 51.891 kg Intake & Output: Intake & Output 02/12/21 02/13/21 02/13/21 21:59 05:59 13:59 Intake Total 1000 Output Total 4 2 Balance 996 -2 Weight 51.891 kg Intake: IV 1000 Dextrose 5% in Water 1,000 ml @ 1000 100 mls/hr IV .Q10H DENISE Rx#: [id number] Output: # of times incontinent of urine 4 2 Other: Meal Lunch Percent of Meal Consumed Refused Exam: General: Drowsy, No acute Distress Eyes/N/T: Head/Neck: neck supple, CV: RRR, No murmurs, Pulm: Clear b/l, no wheezing/rhonchi/rales Abd: soft, nontender, +BS x4 Ext: no clubbing/cyanosis/edema Neuro: Drowsy today not really following commands, moves extremities spontaneously Skin: warm/dry OBJ DATA Labs CBC & Chem 7: 02/12/21 07:00 02/13/21 04:05 Labs: Abnormal Lab Results 02/13/21 02/12/21 02/12/21 05:50 20:23 14:32 RBC Hgb MCV MCH RDW MPV Lymph # (Auto) RBC Morphology Macrocytosis Sodium Chloride 111 H 110 H Carbon Dioxide 20 L 19 L Anion Gap BUN 95 H 88 H Creatinine 6.8 H* 7.6 H* Glucose 119 H Uric Acid Phosphorus Magnesium GGT AST ALT Lactate Dehydrogenase Total Protein Globulin Urine Appearance Hazy A Ur Leukocyte Esterase 500 A Urine WBC 43 H Ur Squamous Epith Cells 5 H Urine Bacteria Few A 02/12/21 02/12/21 02/12/21 08:39 07:00 07:00 RBC 3.38 L Hgb 11.3 L MCV 106.5 H MCH RDW 14.6 H MPV 12.4 H Lymph # (Auto) 1.16 L RBC Morphology Macrocytosis Sodium 152 H 152 H Chloride 115 H 115 H Carbon Dioxide 18 L 18 L Anion Gap 19.0 H 19.0 H BUN 86 H 83 H Creatinine 7.9 H* 7.5 H* Glucose 126 H 132 H Uric Acid 10.2 H Phosphorus 6.7 H* Magnesium 2.9 H GGT 122 H AST ALT Lactate Dehydrogenase 356 H Total Protein 5.5 L Globulin 2.0 L Urine Appearance Ur Leukocyte Esterase Urine WBC Ur Squamous Epith Cells Urine Bacteria 02/11/21 02/11/21 13:51 12:54 RBC 3.49 L Hgb 11.9 L MCV 104.0 H MCH 34.1 H RDW MPV 12.4 H Lymph # (Auto) RBC Morphology Abnormal A Macrocytosis 1+ A Sodium 153 H Chloride 116 H Carbon Dioxide Anion Gap BUN 69 H Creatinine 6.4 H* Glucose Uric Acid Phosphorus Magnesium GGT AST 33 H ALT 40 H Lactate Dehydrogenase Total Protein 5.8 L Globulin Urine Appearance Ur Leukocyte Esterase Urine WBC Ur Squamous Epith Cells Urine Bacteria Meds: Medications Acetaminophen (Acetaminophen 325 Mg Tablet) 650 mg PO Q6HP PRN PRN Reason: Pain Albuterol/Ipratropium (Ipratropium/Albuterol 3 Ml Ampul.Neb) 3 ml NEB Q4HP PRN PRN Reason: Shortness Of Breath Amantadine HCl (Amantadine Hcl 100 Mg Capsule) 100 mg PO BID [facility] Last Admin: 02/12/21 20:38 Dose: 100 mg Documented by: Aspirin (Aspirin 81 Mg Tab.Chew) 81 mg PO QDAY [facility] Last Admin: 02/12/21 08:35 Dose: 81 mg Documented by: Atorvastatin Calcium (Atorvastatin 10 Mg Tablet) 40 mg PO QHS [facility] Last Admin: 02/12/21 20:38 Dose: 40 mg Documented by: Bisacodyl (Bisacodyl 10 Mg Supp.Rect) 10 mg IA ONCE PRN PRN Reason: Constipation Bupropion HCl (Bupropion 150 Mg Tab.Sr.12h) 150 mg PO BID [facility] Last Admin: 02/12/21 20:39 Dose: 150 mg Documented by: Carvedilol (Carvedilol 6.25 Mg Tablet) 6.25 mg PO BIDCC [facility] Last Admin: 02/12/21 17:38 Dose: 6.25 mg Documented by: Divalproex Sodium (Divalproex Sodium 250 Mg Tablet) 1,000 mg PO [facility] Last Admin: 02/12/21 20:39 Dose: 1,000 mg Documented by: Docusate Sodium (Docusate Sodium 100 Mg Capsule) 200 mg PO BID [facility] Last Admin: 02/12/21 20:38 Dose: 200 mg Documented by: Heparin Sodium (Porcine) (Heparin 5,000 Unit/Ml Vial) 5,000 unit SQ Q12 [facility] Last Admin: 02/12/21 20:37 Dose: 5,000 unit Documented by: Dextrose (Dextrose 5% In Water) 1,000 mls @ 100 mls/hr IV .Q10H [facility] Last Admin: 02/13/21 02:13 Dose: Not Given Documented by: Potassium Chloride 40 meq/ (Dextrose) 520 mls @ 130 mls/hr IV UD PRN PRN Reason: Potassium < 3 Magnesium Sulfate (Magnesium Sulfate) 2 gm in 50 mls @ 50 mls/hr IV UD PRN PRN Reason: Magnesium </= 1.6 Lactulose (Lactulose 20 Gm/30 Ml Oral.Krysta) 20 gm PO BID PRN PRN Reason: Constipation Lidocaine/Prilocaine (Lidocaine/Prilocaine 5 Gm Tube) 0 gm TOPICAL Q48HP PRN PRN Reason: DIALYSIS Megestrol Acetate (Megestrol Acetate 400 Mg/10 Ml Oral.Susp) 400 mg PO BID [facility] Last Admin: 02/12/21 20:37 Dose: 400 mg Documented by: Olanzapine (Olanzapine 5 Mg Tablet) 10 mg PO QHS [facility] Last Admin: 02/12/21 20:37 Dose: 10 mg Documented by: Ondansetron HCl (Ondansetron 4 Mg/2 Ml Vial) 4 mg IV Q4HP PRN PRN Reason: Nausea And Vomiting Oxybutynin Chloride (Oxybutynin Chloride 5 Mg Tab.Xl.24h) 5 mg PO QDAY [facility] Last Admin: 02/12/21 08:35 Dose: 5 mg Documented by: Polyethylene Glycol (Polyethylene Glycol 3350 17 Gm Packet) 17 gm PO QDAY [facility] Last Admin: 02/12/21 08:35 Dose: 17 gm Documented by: Potassium Chloride (Potassium Chloride 20 Meq Tablet) 40 meq PO UD PRN PRN Reason: Potassium < 3 Sodium Biphosphate/Sodium Phosphate (Fleets Adult Enema) 1 dose IA DAILYP PRN PRN Reason: Constipation Sodium Chloride (0.9 % Sodium Chloride 10 Ml Syringe) 10 ml IV Q8 [facility] Last Admin: 02/13/21 05:21 Dose: 10 ml Documented by: Trazodone HCl (Trazodone Hcl 50 Mg Tablet) 50 mg PO QHS [facility] Last Admin: 02/12/21 20:39 Dose: 50 mg Documented by: Valproic Acid (Valproic Acids 250 Mg/5 Ml Oral.Krysta) 250 mg PO BID [facility] Last Admin: 02/12/21 20:46 Dose: 250 mg Documented by: A/P Narrative A/P Narrative: A: *Encephalopathy: Multifactorial 2/2 NPH + underlying dementia + metabolic disturbance -has been ongoing, getting worked-up outpt by NSG *Hypernatremia: -resolved yesterday but worsened today *ESRD: Follows with Dr. Mccann *Dementia: *Likely NPH: being Worked up outpatient *Bipolar d/o: *HTN: norvasc/hydralazine/coreg * P: -hypernatremia/electrolyte disturbance per nephrology -HD per nephrology -cont BP meds (hold for low BP) -cont psych meds -f/u with NS for NPH evaluation -CM for placement -ppx: heparin Time Spent With Patient Time: Total time spent is greater than 50% in coordination of care (as documented) at patient's floor/unit and/or counseling patient: QUALITY Stroke Symptom Onset Unknown: No VTE Deep Vein Thrombosis/Pulmonary Embolism Present on Admission: No
[2021-02-13] MEDS: HEPARIN 5,000 UNIT/ML VIAL SQ SCH ×2 (07:59→21:15)
[2021-02-13] MEDS: DOCUSATE SODIUM 100 MG CAPSULE PO SCH ×2 (08:00→21:15)
[2021-02-13] MEDS: AMANTADINE HCL 100 MG CAPSULE PO SCH ×2 (08:00→21:16)
--- NOTE | 2021-02-13 08:07 | Nephrology Progress Note ---
SUBJECTIVE Subjective Patient information: Note initiated : 02/13/21 at 8:04 am Service Date, if different from initiated Date: [] Patient: Eve Jones 61 y/o F admitted on 02/12/21 for weakness. Chief Complaint: []Clinically still looks about the same. she is not coherrnat. Constitutional Vitals: Vital Signs Temp Pulse Resp BP Pulse Ox 98.1 F 59 L 16 83/66 98 02/13/21 04:01 02/13/21 04:01 02/13/21 06:01 02/13/21 06:01 02/13/21 06:01 Period Temp Pulse Resp BP Sys/Anaya Pulse Ox Last 24 Hr 97.4 F-98.5 F 58-85 12-22 83-132/62-102 94-100 Intake and Output 02/12/21 02/13/21 02/13/21 21:59 05:59 13:59 Intake Total 1000 Output Total 4 2 Balance 996 -2 Weight 114 lb 6.4 oz Intake & Output: Intake & Output 02/12/21 02/13/21 02/13/21 21:59 05:59 13:59 Intake Total 1000 Output Total 4 2 Balance 996 -2 Weight 114 lb 6.4 oz Intake: IV 1000 Dextrose 5% in Water 1,000 ml @ 1000 100 mls/hr IV .Q10H DENISE Rx#: [id number] Output: # of times incontinent of urine 4 2 Other: Meal Lunch Percent of Meal Consumed Refused Head Head exam: Present atraumatic Neck Neck exam: Present normal inspection Respiratory Respiratory exam: Present normal respiratory exam Cardiovascular Cardiovascular exam: Present normal rate and rhythm Extremities Exam Extremities exam: Present normal inspection A/P Assessment and plan (1) Acute hypernatremia: Status: Acute Comment: Sodium better with d5w. (2) End stage renal failure on dialysis: Status: Acute Comment: Will dialyse today. Time Spent With Patient Time: Total time spent is greater than 50% in coordination of care (as documented) at patient's floor/unit and/or counseling patient:
[2021-02-13] MEDS: OXYBUTYNIN CHLORIDE 5 MG TAB.XL.24H PO SCH (08:13)
[2021-02-13] MEDS: buPROPion 150 MG TAB.SR.12H PO SCH ×2 (08:13→21:16)
[2021-02-13 10:08] LABS: ALT/SGPT 36 U/L (<40); AST/SGOT 29 U/L (<32); Albumin 3.4 gm/dL (3.2-5.2); Albumin/Globulin Ratio 1.5 (1.0-2.3); Alkaline Phosphatase 109 U/L (39-117); Bilirubin,Direct 0.3 mg/dL (<0.3); Bilirubin,Total 0.5 mg/dL (0.1-1.0); Blood Urea Nitrogen 95 mg/dL (8-23); Calcium 10.2 mg/dL (8.6-10.4); Carbon Dioxide 20 mmol/L (22-30); Chloride 114 mmol/L (96-108); Globulin 2.3 gm/dL (2.2-3.7); Glomerular Filtration Rate 5; Glucose 58 mg/dL (70-105); Lactate Dehydrogenase 360 U/L (135-225); Phosphorous 5.8 mg/dL (2.5-4.5); Triglycerides 110 mg/dL (<150); Uric Acid 10.2 mg/dL (2.5-8.0)
[2021-02-13 14:25] LABS: POC Blood Urea Nitrogen 15 mg/dL (6-20); POC CO2 27 mmol/L (22-30); POC Chloride 100 mEq/L (96-108); POC Creatinine 2.2 mg/dL (0.6-1.2); POC Glucose, Random 62 mg/dL (70-105); POC Hematocrit 35 % (36-48); POC Potassium 3.5 mEql/L (3.3-5.1); POC Sodium 142 mEq/L (133-145)
[2021-02-13] MEDS: ATORVASTATIN 10 MG TABLET PO SCH (21:15)
[2021-02-13] MEDS: DIVALPROEX SODIUM 250 MG TABLET PO SCH (21:15)
[2021-02-13] MEDS: traZODone HCL 50 MG TABLET PO SCH (21:15)
[2021-02-13] MEDS: OLANZapine 5 MG TABLET PO SCH (21:16)
[2021-02-14] MEDS: 0.9 % SODIUM CHLORIDE 10 ML SYRINGE IV SCH ×4 (06:18→20:59)
--- NOTE | 2021-02-14 07:31 | Internal Med Progress Note ---
SUBJECTIVE Subjective Patient information: Note initiated : 02/14/21 at 7:30 am Service Date, if different from initiated Date: [] Patient: Eve Jones a 61 y/o F admitted on 02/12/21 for weakness. Chief Complaint: [] Interval history: History of present illness: Ms. Jones is a 61 year old F [facility] presents for the second time for altered mental status. She was transferred to [facility] and seen by Dr. Lea who felt she likely had a component with normal pressure hydrocephalus and wanted to continue the work-up outpatient. She is also dialysis patient missed dialysis on Thursday because she refused at the nursing facility and per nursing facility she was confused and thus sent back to the hospital. At multiple attempts were made to transfer the patient to her neurology or specifically neurosurgeon was available given the cerebral abnormalities. No beds were available elsewhere and thus requested admission here. Acceptance was predicated on understanding that would likely will not build to resolve her altered mental status given what appears to be underlying normal pressure hydrocephalus as well as known dementia. But she does found to be hyperatremic and the need of dialysis. Dr. Mccann was contacted and she was put on D5 water and will likely get dialysis this morning. Per the notes the son was hoping that her mentation would improve enough that he can have a conversation with her about goals of care as she stated him multiple times as she did not want to undergo dialysis. Patient has no current complaint she says she is feeling okay. 02/13 Sodium returned within normal limits yesterday although elevated again today. Undergoing dialysis today. Mentation seems to be a little bit worse when I visited her during dialysis. 02/14 Patient sleeping but arousable to answer few questions did not seem to have any complaints. Had dialysis yesterday but had to get some fluid back because she was hypotensive. Awaiting follow-up laboratory including sodium. Constitutional Vitals: Vital Signs Temp Pulse Resp BP Pulse Ox 99.0 F 57 L 14 85/58 100 02/14/21 04:00 02/14/21 02:01 02/14/21 04:00 02/14/21 04:00 02/14/21 04:00 Period Temp Pulse Resp BP Sys/Anaya Pulse Ox Last 24 Hr 97.4 F-99.0 F 37-87 14-36 50-148/21-117 87-100 Intake and Output 02/13/21 02/14/21 02/14/21 21:59 05:59 13:59 Intake Total 0 10 Output Total 2 0 Balance -2 10 Weight 50.984 kg Intake & Output: Intake & Output 02/13/21 02/14/21 02/14/21 21:59 05:59 13:59 Intake Total 0 10 Output Total 2 0 Balance -2 10 Weight 50.984 kg Intake: Oral 0 10 Output: Void Amount 0 # of times incontinent of urine 2 0 Other: # Voids 1 Exam: General: Drowsy, No acute Distress Eyes/N/T: Head/Neck: neck supple, CV: RRR, No murmurs, Pulm: Clear b/l, no wheezing/rhonchi/rales Abd: soft, nontender, +BS x4 Ext: no clubbing/cyanosis/edema Neuro: Drowsy but arouses to answer some simple questions and follows commands, falls back asleep quickly, moves extremities spontaneously Skin: warm/dry OBJ DATA Labs CBC & Chem 7: 02/12/21 07:00 02/13/21 04:05 Labs: Abnormal Lab Results 02/13/21 02/13/21 02/13/21 14:04 05:50 04:04 RBC Hgb POC Hct 35 L MCV MCH RDW MPV Lymph # (Auto) RBC Morphology Macrocytosis Sodium 152 H Potassium 5.2 H Chloride 114 H Carbon Dioxide 20 L Anion Gap 18.0 H BUN 95 H Creatinine 8.2 H* POC Creatinine 2.2 H Glucose 58 L POC Glucose 62 L Uric Acid 10.2 H POC WB Ioniz Calcium 1.10 L Phosphorus 5.8 H Magnesium 2.9 H Direct Bilirubin 0.3 H GGT 127 H AST ALT Lactate Dehydrogenase 360 H Total Protein 5.7 L Globulin Urine Appearance Hazy A Ur Leukocyte Esterase 500 A Urine WBC 43 H Ur Squamous Epith Cells 5 H Urine Bacteria Few A 02/12/21 02/12/21 02/12/21 20:23 14:32 08:39 RBC Hgb POC Hct MCV MCH RDW MPV Lymph # (Auto) RBC Morphology Macrocytosis Sodium 152 H Potassium Chloride 111 H 110 H 115 H Carbon Dioxide 20 L 19 L 18 L Anion Gap 19.0 H BUN 95 H 88 H 86 H Creatinine 6.8 H* 7.6 H* 7.9 H* POC Creatinine Glucose 119 H 126 H POC Glucose Uric Acid POC WB Ioniz Calcium Phosphorus Magnesium Direct Bilirubin GGT AST ALT Lactate Dehydrogenase Total Protein Globulin Urine Appearance Ur Leukocyte Esterase Urine WBC Ur Squamous Epith Cells Urine Bacteria 02/12/21 02/12/21 02/11/21 07:00 07:00 13:51 RBC 3.38 L 3.49 L Hgb 11.3 L 11.9 L POC Hct MCV 106.5 H 104.0 H MCH 34.1 H RDW 14.6 H MPV 12.4 H 12.4 H Lymph # (Auto) 1.16 L RBC Morphology Abnormal A Macrocytosis 1+ A Sodium 152 H Potassium Chloride 115 H Carbon Dioxide 18 L Anion Gap 19.0 H BUN 83 H Creatinine 7.5 H* POC Creatinine Glucose 132 H POC Glucose Uric Acid 10.2 H POC WB Ioniz Calcium Phosphorus 6.7 H* Magnesium 2.9 H Direct Bilirubin GGT 122 H AST ALT Lactate Dehydrogenase 356 H Total Protein 5.5 L Globulin 2.0 L Urine Appearance Ur Leukocyte Esterase Urine WBC Ur Squamous Epith Cells Urine Bacteria 02/11/21 12:54 RBC Hgb POC Hct MCV MCH RDW MPV Lymph # (Auto) RBC Morphology Macrocytosis Sodium 153 H Potassium Chloride 116 H Carbon Dioxide Anion Gap BUN 69 H Creatinine 6.4 H* POC Creatinine Glucose POC Glucose Uric Acid POC WB Ioniz Calcium Phosphorus Magnesium Direct Bilirubin GGT AST 33 H ALT 40 H Lactate Dehydrogenase Total Protein 5.8 L Globulin Urine Appearance Ur Leukocyte Esterase Urine WBC Ur Squamous Epith Cells Urine Bacteria Meds: Medications Acetaminophen (Acetaminophen 325 Mg Tablet) 650 mg PO Q6HP PRN PRN Reason: Pain Albuterol/Ipratropium (Ipratropium/Albuterol 3 Ml Ampul.Neb) 3 ml NEB Q4HP PRN PRN Reason: Shortness Of Breath Amantadine HCl (Amantadine Hcl 100 Mg Capsule) 100 mg PO BID [facility] Last Admin: 02/13/21 21:16 Dose: 100 mg Documented by: Aspirin (Aspirin 81 Mg Tab.Chew) 81 mg PO QDAY [facility] Last Admin: 02/13/21 07:58 Dose: 81 mg Documented by: Atorvastatin Calcium (Atorvastatin 10 Mg Tablet) 40 mg PO QHS [facility] Last Admin: 02/13/21 21:15 Dose: 40 mg Documented by: Bisacodyl (Bisacodyl 10 Mg Supp.Rect) 10 mg MD ONCE PRN PRN Reason: Constipation Bupropion HCl (Bupropion 150 Mg Tab.Sr.12h) 150 mg PO BID [facility] Last Admin: 02/13/21 21:16 Dose: 150 mg Documented by: Divalproex Sodium (Divalproex Sodium 250 Mg Tablet) 1,000 mg PO HS [facility] Last Admin: 02/13/21 21:15 Dose: 1,000 mg Documented by: Docusate Sodium (Docusate Sodium 100 Mg Capsule) 200 mg PO BID [facility] Last Admin: 02/13/21 21:15 Dose: 200 mg Documented by: Heparin Sodium (Porcine) (Heparin 5,000 Unit/Ml Vial) 5,000 unit SQ Q12 [facility] Last Admin: 02/13/21 21:15 Dose: 5,000 unit Documented by: Potassium Chloride 40 meq/ (Dextrose) 520 mls @ 130 mls/hr IV UD PRN PRN Reason: Potassium < 3 Magnesium Sulfate (Magnesium Sulfate) 2 gm in 50 mls @ 50 mls/hr IV UD PRN PRN Reason: Magnesium </= 1.6 Lactulose (Lactulose 20 Gm/30 Ml Oral.Krysta) 20 gm PO BID PRN PRN Reason: Constipation Lidocaine/Prilocaine (Lidocaine/Prilocaine 5 Gm Tube) 0 gm TOPICAL Q48HP PRN PRN Reason: DIALYSIS Last Admin: 02/13/21 07:58 Dose: 5 gm Documented by: Megestrol Acetate (Megestrol Acetate 400 Mg/10 Ml Oral.Susp) 400 mg PO BID [facility] Last Admin: 02/13/21 21:15 Dose: 400 mg Documented by: Olanzapine (Olanzapine 5 Mg Tablet) 10 mg PO QHS [facility] Last Admin: 02/13/21 21:16 Dose: 10 mg Documented by: Ondansetron HCl (Ondansetron 4 Mg/2 Ml Vial) 4 mg IV Q4HP PRN PRN Reason: Nausea And Vomiting Oxybutynin Chloride (Oxybutynin Chloride 5 Mg Tab.Xl.24h) 5 mg PO QDAY [facility] Last Admin: 02/13/21 08:13 Dose: 5 mg Documented by: Polyethylene Glycol (Polyethylene Glycol 3350 17 Gm Packet) 17 gm PO QDAY [facility] Last Admin: 02/13/21 07:58 Dose: 17 gm Documented by: Potassium Chloride (Potassium Chloride 20 Meq Tablet) 40 meq PO UD PRN PRN Reason: Potassium < 3 Sodium Biphosphate/Sodium Phosphate (Fleets Adult Enema) 1 dose MD DAILYP PRN PRN Reason: Constipation Sodium Chloride (0.9 % Sodium Chloride 10 Ml Syringe) 10 ml IV Q8 [facility] Last Admin: 02/14/21 06:18 Dose: 10 ml Documented by: Trazodone HCl (Trazodone Hcl 50 Mg Tablet) 50 mg PO QHS [facility] Last Admin: 02/13/21 21:15 Dose: 50 mg Documented by: Valproic Acid (Valproic Acids 250 Mg/5 Ml Oral.Krysta) 250 mg PO BID@0800,1700 [facility] A/P Narrative A/P Narrative: A: *Encephalopathy: Multifactorial 2/2 NPH + underlying dementia + metabolic disturbance +?meds -has been ongoing, getting worked-up outpt by NSG *Hypernatremia: -resolved yesterday but worsened today *ESRD: Follows with Dr. Mccann *Dementia: *Likely NPH: being Worked up outpatient *Bipolar d/o: *HTN: norvasc/hydralazine/coreg * P: -hypernatremia/electrolyte disturbance per nephrology -awaiting labs -HD per nephrology -hold trazadone/olanzapine for sedation -cont BP meds (hold for low BP) -cont psych meds -f/u with NS for NPH evaluation -CM for placement -ppx: heparin Time Spent With Patient Time: Total time spent is greater than 50% in coordination of care (as documented) at patient's floor/unit and/or counseling patient: QUALITY Stroke Symptom Onset Unknown: No VTE Deep Vein Thrombosis/Pulmonary Embolism Present on Admission: No
[2021-02-14] MEDS: POLYETHYLENE GLYCOL 3350 17 GM PACKET PO SCH (09:31)
[2021-02-14] MEDS: MEGESTROL ACETATE 400 MG/10 ML ORAL.SUSP PO SCH ×2 (09:31→21:25)
[2021-02-14] MEDS: OXYBUTYNIN CHLORIDE 5 MG TAB.XL.24H PO SCH (09:31)
[2021-02-14] MEDS: buPROPion 150 MG TAB.SR.12H PO SCH ×3 (09:32→21:24)
[2021-02-14] MEDS: ASPIRIN 81 MG TAB.CHEW PO SCH (09:32)
[2021-02-14] MEDS: DOCUSATE SODIUM 100 MG CAPSULE PO SCH ×2 (09:32→20:56)
[2021-02-14] MEDS: AMANTADINE HCL 100 MG CAPSULE PO SCH ×2 (09:32→20:56)
[2021-02-14] MEDS: HEPARIN 5,000 UNIT/ML VIAL SQ SCH ×2 (09:32→20:57)
[2021-02-14] MEDS: VALPROIC ACIDS 250 MG/5 ML ORAL.SOL PO SCH ×2 (09:33→17:26)
[2021-02-14 10:38] LABS: ALT/SGPT 35 U/L (<40); AST/SGOT 37 U/L (<32); Albumin 3.2 gm/dL (3.2-5.2); Albumin/Globulin Ratio 1.5 (1.0-2.3); Alkaline Phosphatase 105 U/L (39-117); Bilirubin,Direct 0.3 mg/dL (<0.3); Bilirubin,Total 0.6 mg/dL (0.1-1.0); Blood Urea Nitrogen 35 mg/dL (8-23); Calcium 9.2 mg/dL (8.6-10.4); Carbon Dioxide 28 mmol/L (22-30); Chloride 102 mmol/L (96-108); Globulin 2.1 gm/dL (2.2-3.7); Glomerular Filtration Rate 12; Glucose 52 mg/dL (70-105); Lactate Dehydrogenase 339 U/L (135-225); Triglycerides 112 mg/dL (<150); Uric Acid 3.3 mg/dL (2.5-8.0)
[2021-02-14] MEDS ORDERED: 0.9 % SODIUM CHLORIDE 10 ML SYRINGE IV PRN (10:43)
[2021-02-14] MEDS ORDERED: TPN PER PHARMACY IV ONE (10:43)
--- NOTE | 2021-02-14 13:29 | Internal Med Progress Note ---
SUBJECTIVE Subjective Patient information: Note initiated : 02/15/21 at 1:27 pm Service Date, if different from initiated Date: [] Patient: Eve Jones a 61 y/o F admitted on 02/12/21 for weakness. Chief Complaint: [] Interval history: History of present illness: Ms. Jones is a 61 year old F From long-term facility presents for the second time for altered mental status. She was transferred to [facility] and seen by Dr. Lea who felt she likely had a component with normal pressure hydrocephalus and wanted to continue the work-up outpatient. She is also missed dialysis on Thursday because she refused at the nursing facility and per nursing facility she was confused and thus sent back to the hospital. At multiple attempts were made to transfer the patient to her neurology or specifically neurosurgeon was available given the cerebral abnormalities. No beds were available elsewhere and thus requested admission here. Acceptance was predicated on understanding that would likely will not build to resolve her altered mental status given what appears to be underlying normal pressure hydrocephalus as well as known dementia. But she does found to be hypernatremic and the need of dialysis. Dr. Mccann was contacted and she was put on D5 water and will likely get dialysis this morning. Per the notes the son was hoping that her mentation would improve enough that he can have a conversation with her about goals of care as she stated him multiple times as she did not want to undergo dialysis. Patient has no current complaint she says she is feeling okay. 02/13 Sodium returned within normal limits yesterday although elevated again today. Undergoing dialysis today. Mentation seems to be a little bit worse when I visited her during dialysis. 02/14 Patient sleeping but arousable to answer few questions did not seem to have any complaints. Had dialysis yesterday but had to get some fluid back because she was hypotens becky. Awaiting follow-up laboratory including sodium. 02/15-no significant improvement in mental status, tremors seem to have worsened, spoke with [facility] transfer center regarding hospital to hospital transfer- awaiting call back. General: Appears malnourished Head: Atraumatic, normal inspection. Eyes: normal appearance, no scleral icterus. Neck: full ROM Respiratory: no respiratory distress. Cardiovascular: normal rate and rhythm, S1, S2. GI/Abdominal: soft, nontender, no guarding. Extremities: full range of motion, nontender. Neurological: encephalopathic, episodic tremors, CN II-XII intact, intact motor Psychiatric: appears anxious Skin: warm, normal color Constitutional Vitals: Vital Signs Temp Pulse Resp BP Pulse Ox 98.8 F 64 27 H 101/82 99 02/14/21 12:03 02/14/21 12:03 02/14/21 12:03 02/14/21 12:03 02/14/21 12:03 Period Temp Pulse Resp BP Sys/Anaya Pulse Ox Last 24 Hr 97.4 F-99.0 F 57-82 11-36 65-119/46-104 94-100 Intake and Output 02/13/21 02/14/21 02/14/21 21:59 05:59 13:59 Intake Total 0 10 Output Total 2 0 Balance -2 10 Weight 50.984 kg Intake & Output: Intake & Output 02/13/21 02/14/21 02/14/21 21:59 05:59 13:59 Intake Total 0 10 Output Total 2 0 Balance -2 10 Weight 50.984 kg Intake: Oral 0 10 Output: Void Amount 0 # of times incontinent of urine 2 0 Other: # Voids 1 OBJ DATA Labs CBC & Chem 7: 02/15/21 08:47 02/15/21 08:47 Labs: Abnormal Lab Results 02/14/21 02/14/21 02/13/21 09:25 06:15 14:04 RBC Hgb POC Hct 35 L MCV MCH RDW MPV Lymph # (Auto) RBC Morphology Macrocytosis Sodium Potassium Chloride Carbon Dioxide Anion Gap BUN 35 H Creatinine 3.8 H POC Creatinine 2.2 H Glucose 52 L POC Glucose 62 L Uric Acid POC WB Ioniz Calcium 1.10 L Phosphorus 5.0 H Magnesium Direct Bilirubin 0.3 H GGT 117 H AST 37 H ALT Lactate Dehydrogenase 339 H Total Protein 5.3 L Globulin 2.1 L Vitamin B12 1559.0 H Urine Appearance Ur Leukocyte Esterase Urine WBC Ur Squamous Epith Cells Urine Bacteria 02/13/21 02/13/21 02/12/21 05:50 04:04 20:23 RBC Hgb POC Hct MCV MCH RDW MPV Lymph # (Auto) RBC Morphology Macrocytosis Sodium 152 H Potassium 5.2 H Chloride 114 H 111 H Carbon Dioxide 20 L 20 L Anion Gap 18.0 H BUN 95 H 95 H Creatinine 8.2 H* 6.8 H* POC Creatinine Glucose 58 L POC Glucose Uric Acid 10.2 H POC WB Ioniz Calcium Phosphorus 5.8 H Magnesium 2.9 H Direct Bilirubin 0.3 H GGT 127 H AST ALT Lactate Dehydrogenase 360 H Total Protein 5.7 L Globulin Vitamin B12 Urine Appearance Hazy A Ur Leukocyte Esterase 500 A Urine WBC 43 H Ur Squamous Epith Cells 5 H Urine Bacteria Few A 02/12/21 02/12/21 02/12/21 14:32 08:39 07:00 RBC Hgb POC Hct MCV MCH RDW MPV Lymph # (Auto) RBC Morphology Macrocytosis Sodium 152 H 152 H Potassium Chloride 110 H 115 H 115 H Carbon Dioxide 19 L 18 L 18 L Anion Gap 19.0 H 19.0 H BUN 88 H 86 H 83 H Creatinine 7.6 H* 7.9 H* 7.5 H* POC Creatinine Glucose 119 H 126 H 132 H POC Glucose Uric Acid 10.2 H POC WB Ioniz Calcium Phosphorus 6.7 H* Magnesium 2.9 H Direct Bilirubin GGT 122 H AST ALT Lactate Dehydrogenase 356 H Total Protein 5.5 L Globulin 2.0 L Vitamin B12 Urine Appearance Ur Leukocyte Esterase Urine WBC Ur Squamous Epith Cells Urine Bacteria 02/12/21 02/11/21 02/11/21 07:00 13:51 12:54 RBC 3.38 L 3.49 L Hgb 11.3 L 11.9 L POC Hct MCV 106.5 H 104.0 H MCH 34.1 H RDW 14.6 H MPV 12.4 H 12.4 H Lymph # (Auto) 1.16 L RBC Morphology Abnormal A Macrocytosis 1+ A Sodium 153 H Potassium Chloride 116 H Carbon Dioxide Anion Gap BUN 69 H Creatinine 6.4 H* POC Creatinine Glucose POC Glucose Uric Acid POC WB Ioniz Calcium Phosphorus Magnesium Direct Bilirubin GGT AST 33 H ALT 40 H Lactate Dehydrogenase Total Protein 5.8 L Globulin Vitamin B12 Urine Appearance Ur Leukocyte Esterase Urine WBC Ur Squamous Epith Cells Urine Bacteria Meds: Medications Acetaminophen (Acetaminophen 325 Mg Tablet) 650 mg PO Q6HP PRN PRN Reason: Pain Albuterol/Ipratropium (Ipratropium/Albuterol 3 Ml Ampul.Neb) 3 ml NEB Q4HP PRN PRN Reason: Shortness Of Breath Amantadine HCl (Amantadine Hcl 100 Mg Capsule) 100 mg PO BID DENISE Last Admin: 02/14/21 09:32 Dose: 100 mg Documented by: Aspirin (Aspirin 81 Mg Tab.Chew) 81 mg PO QDAY [facility] Last Admin: 02/14/21 09:32 Dose: 81 mg Documented by: Atorvastatin Calcium (Atorvastatin 10 Mg Tablet) 40 mg PO QHS [facility] Last Admin: 02/13/21 21:15 Dose: 40 mg Documented by: Bisacodyl (Bisacodyl 10 Mg Supp.Rect) 10 mg KS ONCE PRN PRN Reason: Constipation Bupropion HCl (Bupropion 150 Mg Tab.Sr.12h) 150 mg PO BID [facility] Last Admin: 02/14/21 09:32 Dose: 150 mg Documented by: Divalproex Sodium (Divalproex Sodium 250 Mg Tablet) 500 mg PO HS [facility] Docusate Sodium (Docusate Sodium 100 Mg Capsule) 200 mg PO BID [facility] Last Admin: 02/14/21 09:32 Dose: 200 mg Documented by: Heparin Sodium (Porcine) (Heparin 5,000 Unit/Ml Vial) 5,000 unit SQ Q12 [facility] Last Admin: 02/14/21 09:32 Dose: 5,000 unit Documented by: Heparin Sodium (Porcine) (Heparin Flush 10 Units/Ml 5 Ml Syringe) 2 ml IV Q12 [facility] Potassium Chloride 40 meq/ (Dextrose) 520 mls @ 130 mls/hr IV UD PRN PRN Reason: Potassium < 3 Magnesium Sulfate (Magnesium Sulfate) 2 gm in 50 mls @ 50 mls/hr IV UD PRN PRN Reason: Magnesium </= 1.6 Lactulose (Lactulose 20 Gm/30 Ml Oral.Krysta) 20 gm PO BID PRN PRN Reason: Constipation Lidocaine/Prilocaine (Lidocaine/Prilocaine 5 Gm Tube) 0 gm TOPICAL Q48HP PRN PRN Reason: DIALYSIS Last Admin: 02/13/21 07:58 Dose: 5 gm Documented by: Megestrol Acetate (Megestrol Acetate 400 Mg/10 Ml Oral.Susp) 400 mg PO BID [facility] Last Admin: 02/14/21 09:31 Dose: 400 mg Documented by: Ondansetron HCl (Ondansetron 4 Mg/2 Ml Vial) 4 mg IV Q4HP PRN PRN Reason: Nausea And Vomiting Oxybutynin Chloride (Oxybutynin Chloride 5 Mg Tab.Xl.24h) 5 mg PO QDAY [facility] Last Admin: 02/14/21 09:31 Dose: 5 mg Documented by: Polyethylene Glycol (Polyethylene Glycol 3350 17 Gm Packet) 17 gm PO QDAY [facility] Last Admin: 02/14/21 09:31 Dose: 17 gm Documented by: Potassium Chloride (Potassium Chloride 20 Meq Tablet) 40 meq PO UD PRN PRN Reason: Potassium < 3 Sodium Biphosphate/Sodium Phosphate (Fleets Adult Enema) 1 dose KS DAILYP PRN PRN Reason: Constipation Sodium Chloride (0.9 % Sodium Chloride 10 Ml Syringe) 10 ml IV Q8 [facility] Last Admin: 02/14/21 06:18 Dose: 10 ml Documented by: Sodium Chloride (0.9 % Sodium Chloride 10 Ml Syringe) 10 ml IV UD PRN PRN Reason: FLUSH Sodium Chloride (0.9 % Sodium Chloride 10 Ml Syringe) 10 ml IV Q12 [facility] Valproic Acid (Valproic Acids 250 Mg/5 Ml Oral.Krysta) 250 mg PO BID@0800,1700 [facility] Last Admin: 02/14/21 09:33 Dose: Not Given Documented by: A/P Narrative A/P Narrative: Assessment: 61-year-old female with a history of hypertension, ESRD on HD, bipolar disorder, dementia, concern for normal pressure hydrocephalus currently being worked up as an outpatient admitted for encephalop athy which is likely multifactorial relating to the patient's underlying dementia, pressure hydrocephalus, and psychotropic medications. *Encephalopathy: Multifactorial 2/2 NPH + underlying dementia + metabolic disturbance +?meds -has been ongoing, getting worked-up outpt by [facility] *Hypernatremia: -resolved yesterday but worsened today *ESRD: Follows with Dr. Mccann *Dementia: *Likely NPH: being Worked up outpatient *Bipolar d/o: *HTN: norvasc/hydralazine/coreg * P: -hypernatremia/electrolyte disturbance per nephrology -awaiting labs -HD per nephrology -hold trazadone/olanzapine for sedation -cont BP meds (hold for low BP) -cont psych meds -f/u with NS for NPH evaluation -CM for placement -ppx: heparin Time Spent With Patient Time: Total time spent is greater than 50% in coordination of care (as documented) at patient's floor/unit and/or counseling patient: QUALITY Stroke Symptom Onset Unknown: No VTE Deep Vein Thrombosis/Pulmonary Embolism Present on Admission: No
[2021-02-14] MEDS: DIVALPROEX SODIUM 250 MG TABLET PO SCH (20:55)
[2021-02-14] MEDS: ATORVASTATIN 10 MG TABLET PO SCH ×2 (20:57→21:24)
[2021-02-15] MEDS: 0.9 % SODIUM CHLORIDE 10 ML SYRINGE IV SCH ×5 (04:58→21:05)
[2021-02-15] MEDS: DOCUSATE SODIUM 100 MG CAPSULE PO SCH ×3 (07:07→21:17)
--- NOTE | 2021-02-15 08:38 | Nephrology Progress Note ---
SUBJECTIVE Subjective Patient information: Note initiated : 02/15/21 at 8:34 am Service Date, if different from initiated Date: [] Patient: Eve Jones 61 y/o F admitted on 02/12/21 for weakness. Chief Complaint: [clinically looks the same] Constitutional Vitals: Vital Signs Temp Pulse Resp BP Pulse Ox 98.2 F 75 19 110/100 93 02/15/21 08:00 02/15/21 04:04 02/15/21 08:00 02/15/21 08:00 02/15/21 08:00 Period Temp Pulse Resp BP Sys/Anaya Pulse Ox Last 24 Hr 97.8 F-98.8 F 64-75 11-27 65-127/46-100 93-100 Intake and Output 02/14/21 02/15/21 02/15/21 21:59 05:59 13:59 Intake Total 120 Output Total 1 Balance -1 120 Weight 112 lb 14.4 oz Intake & Output: Intake & Output 02/14/21 02/15/21 02/15/21 21:59 05:59 13:59 Intake Total 120 Output Total 1 Balance -1 120 Weight 112 lb 14.4 oz Intake: Nourishment/Supplement quantity 120 (ml) Output: # of times incontinent of urine 1 Other: Meal Dinner Percent of Meal Consumed 0% Feeding Ability Total Assistance Nourishment/Supplement name Breeze Stool Size Small Moderate Stool Color Brown Green Stool Consistency Soft Soft Loose # Bowel Movements 1 # of times incontinent of 1 1 Bowels ENT ENT exam: Present normal oropharynx Respiratory Respiratory exam: Present normal respiratory exam Cardiovascular Cardiovascular exam: Present normal rate and rhythm GI/Abdominal GI/Abdominal exam: Present normal bowel sounds A/P Narrative A/P Narrative: (1) Acute hypernatremia: Will recheck sodium today. (2) End stage renal failure on dialysis: Will dialyse today. Time: Total time spent is greater than 50% in coordination of care (as documented) at patient's floor/unit and/or counseling patient: Time Spent With Patient Time: Total time spent is greater than 50% in coordination of care (as documented) at patient's floor/unit and/or counseling patient:
[2021-02-15] MEDS: MEGESTROL ACETATE 400 MG/10 ML ORAL.SUSP PO SCH ×2 (09:20→20:52)
[2021-02-15 09:21] LABS: Basophils # (Auto) 0 K/mcL (0.00-0.20); Basophils % (Auto) 0 % (0.0-2.0); Eosinophils # (Auto) 0.02 K/mcL (0.00-0.70); Eosinophils % (Auto) 0.4 % (0.0-7.0); Hematocrit 31.4 % (36.0-48.0); Hemoglobin 10.4 g/dL (12.0-15.0); Lymphocytes # (Auto) 2.07 K/mcL (1.50-4.80); Mean Cell Volume 103.3 fL (80.0-100.0); Mean Corpuscular HGB Conc 33.1 g/dL (31.0-36.0); Mean Platelet Volume 12.7 fL (7.4-10.4); Monocytes # (Auto) 0.41 K/mcL (0.10-0.90); Monocytes % (Auto) 7.9 % (1.0-12.0); Neutrophils % (Auto) 51.7 % (38.0-78.0); Platelet Count 144 K/mcL (140-440); RBC 3.04 M/mcL (4.00-5.20); Red Cell Distribution Width 13.9 % (11.5-14.5); WBC 5.2 K/mcL (4.5-11.0)
[2021-02-15] MEDS: VALPROIC ACIDS 250 MG/5 ML ORAL.SOL PO SCH ×2 (09:21→17:57)
[2021-02-15] MEDS: HEPARIN 5,000 UNIT/ML VIAL SQ SCH ×2 (09:21→20:52)
[2021-02-15] MEDS: POLYETHYLENE GLYCOL 3350 17 GM PACKET PO SCH (09:22)
[2021-02-15] MEDS: AMANTADINE HCL 100 MG CAPSULE PO SCH ×3 (09:22→21:17)
[2021-02-15] MEDS: OXYBUTYNIN CHLORIDE 5 MG TAB.XL.24H PO SCH (09:22)
[2021-02-15] MEDS: ASPIRIN 81 MG TAB.CHEW PO SCH (09:22)
[2021-02-15] MEDS: buPROPion 150 MG TAB.SR.12H PO SCH ×3 (09:22→21:18)
[2021-02-15 09:46] LABS: ALT/SGPT 34 U/L (<40); AST/SGOT 25 U/L (<32); Albumin 3.3 gm/dL (3.2-5.2); Albumin/Globulin Ratio 1.4 (1.0-2.3); Alkaline Phosphatase 114 U/L (39-117); Bilirubin,Direct 0.3 mg/dL (<0.3); Bilirubin,Total 0.6 mg/dL (0.1-1.0); Blood Urea Nitrogen 62 mg/dL (8-23); Calcium 9.9 mg/dL (8.6-10.4); Carbon Dioxide 24 mmol/L (22-30); Chloride 103 mmol/L (96-108); Globulin 2.4 gm/dL (2.2-3.7); Glomerular Filtration Rate 7; Glucose 112 mg/dL (70-105); Lactate Dehydrogenase 341 U/L (135-225); Phosphorous 6.7 mg/dL (2.5-4.5); Triglycerides 133 mg/dL (<150); Uric Acid 5.3 mg/dL (2.5-8.0)
--- NOTE | 2021-02-15 17:54 | Discharge Summary ---
Discharge Provider Provider Patient information: Note initiated : 02/15/21 at 5:35 pm Service Date, if different from initiated Date: [] Patient: Eve Jones 61 y/o F admitted on 02/12/21 for weakness. Chief Complaint: [] Date of admission: 02/12/21 00:38 Discharge date: 02/15/21 Primary care physician: Cory Padilla Consults: 02/11/21 Consult to Physician [CONS] Stat Comment: hypernatremia/dialysis Consulting Provider: Gurwinder Mccann Reason For Exam: Physician to Consult 02/12/21 06:45 Consult to Physician [CONS] Routine Comment: Consulting Provider: Gurwinder Mccann Reason For Exam: Physician to Consult Discharge Meds Discharge Medications Home Medications Nephro-Saritha 1 tab PO QDAY 02/11/21 [History Confirmed 02/11/21 Last Taken Unknown] acetaminophen 650 mg PO Q6HP PRN 02/11/21 [History Confirmed 02/12/21 Last Taken Unknown] amantadine HCl 100 mg PO BID 02/11/21 [History Confirmed 02/11/21 Last Taken Unknown] aspirin 81 mg PO QDAY 02/11/21 [History Confirmed 02/11/21 Last Taken Unknown] atorvastatin 40 mg PO QHS 02/11/21 [History Confirmed 02/12/21 Last Taken Unknown] bisacodyl [Dulcolax (bisacodyl)] 10 mg MT ONCE PRN 02/11/21 [History Confirmed 02/11/21 Last Taken Unknown] bupropion HCl 150 mg PO BID 02/11/21 [History Confirmed 02/12/21 Last Taken Unknown] clopidogrel 75 mg PO QDAY 02/11/21 [History Confirmed 02/11/21 Last Taken Unknown] docusate sodium 250 mg PO BID 02/11/21 [History Confirmed 02/11/21 Last Taken Unknown] lactulose 30 ml PO BID PRN 02/11/21 [History Confirmed 02/12/21 Last Taken Unknown] megestrol 400 mg PO BID 02/11/21 [History Confirmed 02/11/21 Last Taken Unknown] oxybutynin chloride [Ditropan XL] 5 mg PO QDAY 02/11/21 [History Confirmed 02/11/21 Last Taken Unknown] polyethylene glycol 3350 17 g PO QDAY 02/11/21 [History Confirmed 02/11/21 Last Taken Unknown] sevelamer HCl 800 mg PO TID 02/11/21 [History Confirmed 02/11/21 Last Taken Unknown] valproic acid 250 mg PO BIDWMEAL 02/11/21 [History Confirmed 02/13/21 Last Taken Unknown] lidocaine-prilocaine 2.5 g TOPICAL Q48H 02/12/21 [History Confirmed 02/12/21 Last Taken Unknown] divalproex 500 mg PO HS #60 tab 02/15/21 [Rx Last Taken Unknown] docusate sodium [DOK] 200 mg PO BID #30 cap 02/15/21 [Rx Last Taken Unknown] COURSE Hospital Course Hospital course: History of present illness: Ms. Jones is a 61 year old female who resides in a nursing facility and presented for the second time to emergency departments for altered mental status. The first time the patient presented [facility] ED and seen by Dr. Lea who felt she likely had a component with normal pressure hydrocephalus and wanted to continue the work-up outpatient. The patient had neuroimaging showing hydrocephalus out of proportion to cerebral atrophy. The patient also has marked frontotemporal atrophy for her age. The patient was discharged back to the SNF with outpatient plans for normal pressure hydrocephalus workup. The patient then missed dialysis the following Thursday because she refused at the nursing facility and per nursing facility she was confused and thus sent back to an emergency department, this time [facility] ([facility]). [facility] does not currently have neurology or neurosurgery specialty support. Multiple attempts were made to transfer the patient to [facility] to her neurology or specifically neurosurgeon was available given the cerebral abnormalities. No beds were available elsewhere and thus requested admission at [facility]. Acceptance was predicated on understanding that we would be not be able to provide the specialty support she required for her cognitive issues including workup for possible NPH. The patient at that time was hypernatremic and in need of hemo dialysis therefore the patient was admitted to address those issues. Nephrology, Dr. Mccann, was consulted. The patient was admitted on 02/12, started on D5 water, and received inpatient hemodialysis. Per the notes the son was hoping that her mentation would improve enough that he can have a conversation with her about goals of care as she stated him multiple times as she did not want to undergo dialysis. 02/13 Sodium returned within normal limits yesterday although elevated again today. Undergoing dialysis today. Mentation seems to be a little bit worse during dialysis. 02/14 Patient sleeping but arousable to answer few questions did not seem to have any complaints. Had dialysis yesterday but had to get some fluid back because she was hypotensive. Awaiting follow-up laboratory including sodium. Discontinued Olanzapine and Trazodone. Decreased Valproic acid dose. Holding home blood pressure medications for low normal blood pressure. 02/15-no significant improvement in mental status, tremors seem to have worsened, spoke with [facility] transfer center regarding hospital to hospital transfer-[facility] does not currently have bed availability. Spoke with [facility] neurology and hospital medicine. The patient was accepted for NPH workup at [facility]. Reviewed plan with the family and discussed realistic expectations regarding NPH workup and prognosis. Family would like to complete workup and if patient does not improve clinically would consider comfort care and hospice. Patient currently full code. Medication changes made at discharge-did not resume home olanzapine and trazodone, decreased dose of Valproic acid, did not resume home norvasc, coreg, hydralazine due to normal and sometimes low blood pressure during hospitalization. General: Appears malnourished Head: Atraumatic, normal inspection. Eyes: normal appearance, no scleral icterus. Neck: full ROM Respiratory: no respiratory distress. Cardiovascular: normal rate and rhythm, S1, S2. GI/Abdominal: soft, nontender, no guarding. Extremities: full range of motion, nontender. Neurological: encephalopathic, episodic tremors, CN II-XII intact, intact motor Psychiatric: appears anxious Skin: warm, normal color Discharge diagnosis: Encephalopathy Secondary discharge diagnosis: Possible frontotemporal dementia Possible normal pressure hydrocephalus ESRD on hemodialysis Reason for admission: Encephalopathy Time Spent with Patient Time attestation: Total time spent providing and/or coordinating discharge services: EXAM Constitutional Vitals: Temp Pulse Resp BP Pulse Ox 97.9 F 89 18 90/77 94 02/15/21 12:03 02/15/21 13:36 02/15/21 16:01 02/15/21 16:01 02/15/21 16:01 Discharge Data Data Completed and Pending Labs on day of discharge: Labs from last 24 hours 02/15/21 02/15/21 02/14/21 08:47 08:47 09:25 WBC 5.2 RBC 3.04 L Hgb 10.4 L Hct 31.4 L MCV 103.3 H MCH 34.2 H MCHC 33.1 RDW 13.9 Plt Count 144 MPV 12.7 H Neut % (Auto) 51.7 Lymph % (Auto) 40.0 [place] % (Auto) 7.9 Eos % (Auto) 0.4 Baso % (Auto) 0 Lymph # (Auto) 2.07 [place] # (Auto) 0.41 Eos # (Auto) 0.02 Baso # (Auto) 0 Absolute Neutrophils 2.68 Sodium 141 Potassium 4.4 Chloride 103 Carbon Dioxide 24 Anion Gap 14.0 BUN 62 H Creatinine 5.9 H* GFR Calculation 7 Glucose 112 H Uric Acid 5.3 Calcium 9.9 Phosphorus 6.7 H* Magnesium 2.5 Total Bilirubin 0.6 Direct Bilirubin 0.3 H GGT 112 H AST 25 ALT 34 Alkaline Phosphatase 114 Lactate Dehydrogenase 341 H Total Protein 5.7 L Albumin 3.3 Globulin 2.4 Albumin/Globulin Ratio 1.4 Triglycerides 133 Arginine Vasopressin Miscellaneous Test Pending 02/14/21 09:25 WBC RBC Hgb Hct MCV MCH MCHC RDW Plt Count MPV Neut % (Auto) Lymph % (Auto) [place] % (Auto) Eos % (Auto) Baso % (Auto) Lymph # (Auto) [place] # (Auto) Eos # (Auto) Baso # (Auto) Absolute Neutrophils Sodium Potassium Chloride Carbon Dioxide Anion Gap BUN Creatinine GFR Calculation Glucose Uric Acid Calcium Phosphorus Magnesium Total Bilirubin Direct Bilirubin GGT AST ALT Alkaline Phosphatase Lactate Dehydrogenase Total Protein Albumin Globulin Albumin/Globulin Ratio Triglycerides Arginine Vasopressin Cancelled Miscellaneous Test Preliminary micro results at discharge 02/11/21 14:44 Blood Culture - Preliminary Blood 02/11/21 14:36 Blood Culture - Preliminary Blood Discharge Plan Patient/Caregiver Discharge Instructions Activity: as per physical therapy Diet: Renal Prescriptions: New divalproex 250 mg Tablet,Delayed Release (Dr/Ec) 500 mg PO HS Qty: 60 RF: 0 docusate sodium [DOK] 100 mg Capsule 200 mg PO BID Qty: 30 RF: 0 Continued bupropion HCl 150 mg tablet sustained-release 12 hr 150 mg PO BID RF: 0 acetaminophen 325 mg tablet 650 mg PO Q6HP PRN (Reason: Pain) RF: 0 polyethylene glycol 3350 17 gram Powder In Packet 17 g PO QDAY RF: 0 atorvastatin 10 mg tablet 40 mg PO QHS RF: 0 sevelamer HCl 800 mg Tablet 800 mg PO TID RF: 0 clopidogrel 75 mg tablet 75 mg PO QDAY RF: 0 valproic acid 250 mg capsule 250 mg PO BIDWMEAL RF: 0 amantadine HCl 100 mg capsule 100 mg PO BID RF: 0 bisacodyl [Dulcolax (bisacodyl)] 10 mg Suppository 10 mg MT ONCE PRN (Reason: Constipation) RF: 0 oxybutynin chloride [Ditropan XL] 5 mg Tablet Extended Release 24hr 5 mg PO QDAY RF: 0 Nephro-Saritha 0.8 mg Tablet 1 tab PO QDAY RF: 0 aspirin 81 mg Tablet 81 mg PO QDAY RF: 0 docusate sodium 250 mg Capsule 250 mg PO BID RF: 0 lactulose 20 gram/30 mL Solution 30 ml PO BID PRN (Reason: Constipation) RF: 0 megestrol 400 mg/10 mL (10 mL) Suspension 400 mg PO BID RF: 0 lidocaine-prilocaine 2.5-2.5 % Cream 2.5 g TOPICAL Q48H RF: 0 Discontinued carvedilol 6.25 mg tablet 6.25 mg PO BID RF: 0 trazodone 50 mg Tablet 50 mg PO QHS RF: 0 olanzapine 10 mg Tablet 10 mg PO QHS RF: 0 hydralazine 25 mg Tablet 25 mg PO BID RF: 0 amlodipine 10 mg tablet 10 mg PO QDAY RF: 0 Fleet Enema 19-7 gram/118 mL Enema 118 ml MT ONCE PRN (Reason: Constipation) RF: 0 divalproex 250 mg tablet,delayed release (DR/EC) 1,000 mg PO HS RF: 0 Follow Up Plan Follow up with: Cory Padilla MD [Primary Care Provider] - Patient Disposition: Xfer [facility] Rehab Potential: Serious Overall status at discharge: patient is not back to baseline Discharge Orders: Discharge Order (Routine); Ordered 02/15/21 Ordered By: Hernando LAY VTE Deep Vein Thrombosis/Pulmonary Embolism Present on Admission: No
[2021-02-15] MEDS: ATORVASTATIN 10 MG TABLET PO SCH ×2 (20:55→21:17)
[2021-02-15] MEDS: DIVALPROEX SODIUM 250 MG TABLET PO SCH ×2 (20:55→21:17)
== END 2021-02-15 21:31 | disposition short-term general hospital (02) | DRG 70 ==
LOC: ED 12:10 → ICU 02-12 00:38
PROVIDERS: ADMIT Internal Medicine; ATTEND Internal Medicine